=== PATIENT | male | born 1990 | race Hispanic/Latino ===

== ENCOUNTER 2025-04-22 16:52 | Inpatient (IN) | payer SELFPAY ==
[~2025-04-22] VITALS: Ht 172.7 cm; Wt 89.8 kg
--- NOTE | 2025-04-22 17:44 | HMCIMG ---
EXAM: CR Chest, 1 View. CLINICAL HISTORY: CHEST PAIN COMPARISON: None provided. FINDINGS: LUNGS: Left lung base opacity with loss of visualization of the left hemidiaphragm and left lateral costophrenic angle suggestive for an acute infectious process and probable left pleural effusion. PLEURAL SPACES: Likely left pleural effusion. Negative pneumothorax. MEDIASTINUM: The cardiomediastinal silhouette is within normal limits. BONES: No acute osseous abnormality. IMPRESSION: Left lower lung pneumonia and left pleural effusion. PA and lateral views of the chest or CT chest could further evaluate if felt to be clinically indicated. /[place]
[2025-04-22 17:47] LABS: IMMATURE GRANULOCYTE ABSOLUTE 0.10 K/uL (0-1); NUCLEATED RED BLOOD CELLS 0.0 % (0.0-0.19); PLATELET COUNT (AUTO) 578 K/uL (130-400); RED BLOOD CELL COUNT(AUTO) 5.02 MIL/uL (4.50-6.20); RED CELL DISTRIBUTION WIDTH 13.8 % (11.0-15.5); WHITE BLOOD COUNT (AUTO) 16.1 K/uL (4.8-10.8)
[2025-04-22 17:56] LABS: CREATININE 1.0 mg/dL (0.5-1.3); GLOMERULAR FILTR. RATE CALC 103.0 mL/min (>90); GLUCOSE,RANDOM 102.0 mg/dL (70-105); SODIUM SERUM 135.0 mmol/L (136-145); UREA NITROGEN, BLOOD 10.0 mg/dL (7-18)
[2025-04-22 18:59] LABS: INFLUENZA TYPE B Negative For Type B (NEGATIVE)
[2025-04-22 19:04] LABS: INFLUENZA TYPE A Positive For Type A (NEGATIVE)
[2025-04-22 19:43] LABS: SARS-CoV-2, RNA, NAAT NEGATIVE SARS CoV-2 (NEGATIVE)
[2025-04-22 19:45] LABS: APPEARANCE,URINE CLEAR (CLEAR); GLUCOSE, URINE (UA) NEGATIVE (NEGATIVE); LEUKOCYTE ESTERASE ,URINE NEGATIVE Leu/uL (NEGATIVE); NITRATE,URINE NEGATIVE (NEGATIVE); OCCULT BLOOD,URINE NEGATIVE (NEGATIVE)
[2025-04-22 19:47] LABS: ADD UA MICROSCOPIC YES
--- NOTE | 2025-04-22 19:47 | HP ---
History of Present Illness Reason for Visit: Pleuritic chest pain History of Present Illness Mr. Merchant is a 34-year-old male that was seen and examined today on 04/22/2025. Patient is a good historian of personal health Patient reports that he came to the emergency department with a chief complaint of pleuritic chest pain. Onset was two days ago. Location is left lower chest. Duration is on and off. Character is described as aching. There was no alleviating factors. Symptoms are aggravated with deep inspiration. Patient reports associated fever and cough. Today in the emergency department WBCs 16.1, left shift neutrophils 87%, urinalysis unremarkable, chemistry unremarkable, flu screen is positive for influenza a, chest x-ray shows left- sided pneumonia with left pleural effusion, lactic acid is unremarkable, procalcitonin is unremarkable additionally patient's temperature was 101.3, heart rate 134, together with leukocytosis and identified source of infection being pneumonia patient met clinical sepsis criteria. Patient reports that he was diagnosed clinically with pericarditis in the outpatient setting two weeks ago. Patient states he has not had any diagnostic radiographic studies to confirm this. Patient was started on colchicine 0.6 mg twice daily. Past Medical History ADDITIONAL PAST MEDICAL HISTORY: [Hyperlipidemia, pericarditis diagnosed two weeks ago without any confirmatory diagnostic radiographic imaging] SOCIAL HISTORY: [Negative for smoking, alcohol use, drug use. Patient lives with his , Soha Prescott. Patient is typically independent of his ADLs. Patient denies difficulty pain is bills.] SURGICAL HISTORY: [] Denies Review of Systems General: Fever; No Chills, No Night Sweats, No Fatigue, No Malaise, No Appetite, No Other HEENT: No Head Aches, No Visual Changes, No Eye Pain, No Ear Pain, No Dysphasia, No Sinus Congestion, No Post Nasal Drip, No Sore Throat, No Other Pulmonary: No Dyspnea; Cough; No Pleuritic Chest Pain; Other (Pleuritic chest pain) Cardiovascular: No: Chest Pain, Palpitations, Orthopnea, Paroxysmal Noc. Dyspnea, Edema, Lt Headedness, Other Gastrointestinal: No: Nausea, Vomiting, Abdominal Pain, Diarrhea, Constipation, Melena, Hematochezia, Other Genitourinary: No Dysuria, No Frequency, No Incontinence, No Hematuria, No Retention, No Other Musculoskeletal: No: other, neck pain, shoulder pain, arm pain, back pain, hand pain, leg pain, foot pain Skin: No Urticaria, No Rash, No Other Neurological: No: Weakness, Numbness, Incoordination, Change in speech, Confusion, Seizures, Other Allergies: Coded Allergies: amoxicillin (Unverified Allergy, Unknown, 04/22/25) Scheduled Colchicine (Colchicine), 1 TAB PO BID, (Reported) Loratadine/Pseudoephedrine (Claritin-D 12 Hour Tablet), 1 TAB PO BID, (Reported) Exam Vital Signs Vital Signs Date Time Temp Pulse Resp B/P (MAP) Pulse Ox O2 Delivery O2 Flow Rate FiO2 04/22/25 18:51 98.4 04/22/25 18:47 120 20 121/85 98 Room Air* 0 21 General Appearance: Alert, Oriented X3, Cooperative, mild distress HEENT: Atraumatic, PERRLA, EOMI, Mucous membr. moist/pink Respiratory: Other (Positive left lower lobe rhonchi) Cardiovascular: Normal S1, Normal S2, Other (Positive tachycardia) Abdominal: Normal bowel sounds, Soft, No tenderness Extremities: No edema Skin: No significant lesion Neuro: Normal gait, Normal speech, Strength at 5/5 X4 ext, Sensation intact, Cranial nerves 3-12 NL Psych/Mental Status: Mental status NL, Mood NL, Thoughts/Content NL Assessment/Plan ASSESSMENT: [ Sepsis, POA Pneumonia, POA Leukocytosis, POA Influenza A positive, POA Left pleural effusion, POA Hyperlipidemia Pericarditis diagnosed in the outpatient setting two weeks ago PLAN: [ Admit patient to medical floor as inpatient status. Fluid resuscitation with lactated Ringer's 30 mL/kg Empiric antibiotic therapy with Levaquin Reviewed patient's procalcitonin which was unremarkable Reviewed patient's lactic acid which was unremarkable Check blood culture, follow up with the results Check respiratory culture, follow up with the results Reviewed patient's urinalysis which was unremarkable DuoNebs every 6 hours Supportive treatment with a guaifenesin/dextromethorphan, Tylenol Tamiflu 75 mg by mouth twice daily Consider resuming home medications once they have been reconciled At time of admission home medications not been reconciled For now: Atorvastatin 40 mg by mouth once daily Cardiac MRI, follow up with the results Resume patient's home dose of colchicine 0.6 mg twice daily GI prophylaxis, famotidine DVT prophylaxis, Lovenox ADVANCED CARE PLANNING 1. Which of the following were discussed? Hospice Care - Yes Therapeutic options - yes Advance Directives - Yes - patient states he does not have any advance directives in place at this time, however his can make decisions for him if he becomes unable. Other discussions - patient wishes to remain a full code at this time 2. Discussed with who? Patient 3. Voluntary nature of this service was explained to the patient? Yes 4. Amount of time spent - ___16 minutes____ 5. Reviewed by Physician? (if this service was performed by NPP) Yes This document was generated in part using voice recognition software, occasional wrong word or sound alike substitutions may have occurred due to the inherent limitations of voice recognition software. Read the chart carefully and recognize using context, where the substitutions have occurred. Although every effort was made to edit the content, firestop/containment worker and typing errors may occur ATTESTATION BY PHYSICIAN I have seen and examined the patient. I reviewed the documentation, medical decision making, and treatment plan as noted by the mid-level provider above. I agree with the findings and plan of care. ] BREANA MERCHANT [facility] Apr 22, 2025 19:47
[2025-04-22 19:50] LABS: SQUAMOUS EPITHELIAL CELL,UR RARE /HPF (0-2)
[2025-04-22] MEDS: OSELTAMIVIR PHOSPHATE 75 MG CAP PO ONE (20:06)
[2025-04-22 20:09] VITALS: TEMP 98.4
--- NOTE | 2025-04-22 20:23 | ERN ---
General Chief Complaint: Chest Pain Stated Complaint: PNEUMONIA Time Seen by MD: 17:07 Time Seen by Midlevel: 17:07 Source: patient History of Present Illness Initial Comments 34-year-old male presents to the ER for evaluation of left-sided chest pain that has been persistent for the last couple of days. Allergies: Coded Allergies: amoxicillin (Unverified Allergy, Unknown, 04/22/25) Past Medical History Past Medical History: High Cholesterol Medical History Other: PERICARDITIS Past Surgical History: None ROS Dictation CONSTITUTIONAL: Negative except for HPI HEAD/FACE: Negative except for HPI EENT: Negative except for HPI RESPIRATORY: Negative except for HPI GASTROINTESTINAL/ABDOMINAL: Negative except for HPI GENITOURINARY: Negative except for HPI MUSCULOSKELETAL: Negative except for HPI INTEGUMENTARY: Negative except for HPI NEUROLOGICAL/PSYCH: Negative except for HPI HEMATOLOGIC/LYMPHATIC: Negative except for HPI All Systems Negative, Except as noted above. 13 point review of systems assessed and all negative except for above. Physical Exam Physical Exam Dictation Vital Signs reviewed General Appearance: Alert, oriented x 3, no acute distress, ill-appearing, pale Head and Face: non-traumatic. Eyes: PERRL, pink conjunctivas, eyelid no trauma, anterior chamber with arcus senilis. Ears: Pinnas intact and no signs of trauma or erythema ear canals clear and no discharge TM no erythema Nose: No discharge, no bleeding. Oropharynx: Mouth normal, tongue pink, pharynx clear,no erythema, tonsils no exudates, no abscesses noted, mucous membrane moist Neck: Supple, non-tender, no thyromegaly, no masses, no JVD, no bruits Breast:Deferred Chest:No tenderness, no crepitus, no paradoxical movement, no retractions Lungs:Clear, well-ventilated, symmetric, no rales, no wheezing, no rhonchi, no stridor, good breath sounds bilaterally Heart: Tachycardic regular rhythm, no murmur, no gallops Vascular: no peripheral edema, Abdomen: Soft, positive bowel sounds, nondistended, no guarding, nontender, no rebound, no masses no hepatomegaly, no splenomegaly, no Mccormack's sign, no hernias. Rectal: Deferred Genital: Deferred Neurological: Normal speech, motor function intact, sensory function intact Musculoskeletal: Neck nontender, full range of motion, back nontender, full range of motion, Extremities: nontender, full range of motion Skin: Color pink, dry, no turgor, no rash, no lacerations, no abrasions, no contusions. Lymphatic: Deferred MDM MDM: Differential diagnosis: Pneumonia, acute coronary syndrome, dehydration Rationale: Tests considered and ordered secondary to shared decision making include: Previous outside records reviewed: Old ER visits. Risk of complication and/or morbidity or mortality of patient management: None Medications-Per medication reconciliation Need for hospitalization: Patient does meet criteria for hospitalization. Need for emergency major/minor surgery: No There are no social concerns with this patient. Prescription drug management Prescriptions will include symptomatic care Patient's prior external medical records from other ER visits were reviewed by me as indicated. Prior testing and results from previous visits were reviewed. Prior tests were taken into account with medical decision making and resource utilization, independent historian/historians were used to obtain complete medical history. I independently interpreted the test that were performed, results were reviewed by me and considered findings on radiology if ordered. Medical management and examination interpretation discussions were had by me with other qualified healthcare professionals as indicated for the patient's care. ED Course Vital Signs Date Time Temp Pulse Resp B/P (MAP) Pulse Ox O2 Delivery O2 Flow Rate FiO2 04/22/25 16:53 101.3 134 20 133/79 99 Room Air [place] [id number] [address] IMAGING REPORT Signed PATIENT: RUKHSANA MERCHANT MR#: [id number] : 1990 SEX: M AGE: 34 LOCATION: [facility] ORDER 02 STATUS: REG ER REPORT#: [id number] SERVICE 01 REASON: CHEST PAIN ORDERING PHYSICIAN: LESLIE CARMICHAEL MD PROCEDURE: CXR1VW - CHEST 1VW EXAM: CR Chest, 1 View. CLINICAL HISTORY: CHEST PAIN COMPARISON: None provided. FINDINGS: LUNGS: Left lung base opacity with loss of visualization of the left hemidiaphragm and left lateral costophrenic angle suggestive for an acute infectious process and probable left pleural effusion. PLEURAL SPACES: Likely left pleural effusion. Negative pneumothorax. MEDIASTINUM: The cardiomediastinal silhouette is within normal limits. BONES: No acute osseous abnormality. IMPRESSION: Left lower lung pneumonia and left pleural effusion. PA and lateral views of the chest or CT chest could further evaluate if felt to be clinically indicated. /[place] DICTATED BY: SHE RUANO Jr., MD DATE: 04/22/251842 ELECTRONICALLY SIGNED BY: SHE RUANO Jr., MD DATE: 04/22/251842 DX & DISP Disposition: Inpatient Departure Impression: Primary Impression: Pneumonia involving left lung Additional Impressions: Pleural effusion, left, Influenza A, Leukocytosis Condition: Stable Referrals: SELF,REFERRAL (PCP) I have reviewed the case, and I agree with, Diagnosis and Plan I performed the substantive portion of the visit. I have reviewed and personally made and approve the management plan that is documented in the note by myself or the DESIRAE. I acknowledge for responsibility for the patient's management plan. KIM SOTELO PAC Apr 22, 2025 20:23
--- NOTE | 2025-04-22 21:46 | NUR ---
REPORT GIVEN TO JOAQUIM RN, PT GOING TO RM 330
[2025-04-22 22:00] VITALS: BP 138/77; PULSE 106; RESP 17; TEMP 97.9; O2SAT 93
[2025-04-22] MEDS ORDERED: LACTULOSE 20 GM/30 ML UDCUP PO PRN (22:00)
[2025-04-22] MEDS ORDERED: guaiFENesin-DM 200/20MG 10ML PO PRN (22:00)
--- NOTE | 2025-04-22 22:00 | NUR ---
NEW ADMISSION ADMITTED A 34 YR OLD MALE FROM ER WITH THE CHIEF COMPLAINT OF CHEST PAIN DESCRIBED TIGHTNESS TO THE LEFT CHEST RADIATING TO THE LEFT ARM SINCE TWO WEEKS AGO. SYMPTOMS ALSO INCLUDE SOME SHORTNESS OF BREATH AT INTERVALS WITH INTERMITTENT COUGHING WHICH IS NON PRODUCTIVE. WENT TO SEE HIS PCP SALLY FREEMAN FR[facility]ING CARPENTER AND [facility] WHERE HE WAS DIAGNOSED WITH POSSIBLE PERICARDITIS AND STARTED ON STEROIDS WHICH AFFORDED RELIEF UNTIL HE GOT DONE WITH THE REGIMEN.POSITIVE FOR INFLUENZA A AND WAS PLACED ON DROPLET ISOLATION AND WAS STARTED ON TAMIFLU, PER REGIMEN. STARTED ON SEPSIS PROTOCOL WITH THE WBC AT 16.1, LACTIC ACID AT 1.6, INITIATED THE FLUID RESUSCITATION WHICH WAS ORDERED WHEN THE PT GOT ON THE FLOOR, 2,829 OF LR BOLUS, 943 ML/HR, LEVAQUIN IV ANTIBIOTIC STARTED.ALSO TO BE STARTED ON DUONEBS TREATMENT PENDING SPUTUM COLLECTION FOR CULTURE. PT ALERT AND ORIENTED, AMBULATORY, BREATH SOUNDS CLEAR EXCEPT FOR SOME CONGESTION ON THE LEFT LOWER LOBE.WITH HISTORY OF [place], USES CPAP MASK AT HS.NEVER SMOKED, DRINKS ALCOHOL BET 2 WEEKS TO A MONTH.OS SAT 93% ON ROOM AIR. NOT IN ANY FORM OF DISCOMFORT AT THIS TIME. NO CHEST PAIN AT THIS TIME, AFEBRILE.
[2025-04-22] MEDS: SODIUM CHLORIDE 3% FOR INHALATION 4 ML/AMP VIAL.NEB IH ONE (23:25)
[2025-04-22 23:28] VITALS: PULSE 78; RESP 18; O2SAT 94
[2025-04-22 23:29] VITALS: PULSE 72; RESP 18
[2025-04-23] VITALS (10 sets, daily range): BP systolic 111–141; BP diastolic 73–89; PULSE 68–127; RESP 17–20; TEMP 98.4–100; O2SAT 91–96
[2025-04-23 04:38] LABS: IMMATURE GRANULOCYTE ABSOLUTE 0.07 K/uL (0-1); NUCLEATED RED BLOOD CELLS 0.0 % (0.0-0.19); PLATELET COUNT (AUTO) 381 K/uL (130-400); RED BLOOD CELL COUNT(AUTO) 3.91 MIL/uL (4.50-6.20); RED CELL DISTRIBUTION WIDTH 13.6 % (11.0-15.5); WHITE BLOOD COUNT (AUTO) 10.1 K/uL (4.8-10.8)
[2025-04-23 04:54] LABS: CREATININE 0.8 mg/dL (0.5-1.3); GLOMERULAR FILTR. RATE CALC 121.0 mL/min (>90); GLUCOSE,RANDOM 96.0 mg/dL (70-105); PHOSPHORUS 3.5 mg/dL (2.5-4.9); SODIUM SERUM 140.0 mmol/L (136-145); UREA NITROGEN, BLOOD 10.0 mg/dL (7-18)
[2025-04-23] MEDS: SODIUM CHLORIDE 3% FOR INHALATION 4 ML/AMP VIAL.NEB IH ONE ×2 (06:49→11:32)
--- NOTE | 2025-04-23 07:37 | EKG ---
[facility] Test Date: 2025-04-22 Test Time: 16:36:11 Pat Name: RUKHSANA MERCHANT Department: [facility] Room: 330 1 Gender: M Rod Filler: [id number] : 1990 Requested By: LESLIE CARMICHAEL Order Number: [id number] Reading MD: Gunner Prescott Measurements Intervals [place] Rate: 125 P: 34 HI: 140 QRS: 33 QRSD: 89 T: 37 QT: 292 QTc: 421 Interpretive Statements Sinus tachycardia Probable left atrial enlargement No previous ECG available for comparison Electronically Signed On 04-23-2025 08:51:31 OLIVING MACHINE OPERATOR by Gunner Prescott Please click the below link to view image of tracing.
[2025-04-23] MEDS: LORATAdine/pseudophEPHEDrine 5/120 MG 1 EACH TAB.SR.12H PO SCH (07:50)
[2025-04-23] MEDS: OSELTAMIVIR PHOSPHATE 75 MG CAP PO SCH (07:50)
[2025-04-23] MEDS: FAMOTIDINE 20MG TAB PO SCH (07:50)
[2025-04-23] MEDS: ENOXAPARIN SODIUM 40 MG/0.4 ML SYRINGE SQ SCH (07:50)
--- NOTE | 2025-04-23 10:02 | NUR ---
THE NURSE WILL BE FOLLOWING UP WITH THE ATTENDING FOR CLARIFICATION ON THE MRI ORDER. IF CARDIAC MRI IS WHAT IS DESIRED, WE ARE INCAPABLE OF PROVIDING THIS EXAM. THIS MRI UNIT LACKS THE SOFTWARE AND EQUIPMENT FOR CARDIAC MRI IMAGING.
--- NOTE | 2025-04-23 10:27 | NUR ---
DCP:HOME Pt currently lives at home with his . Pt states that he only has a CPAP machine at home, denies any home health or provider services. Pt states that he is able to complete ADLs independently. PCP is Marichuy Wright and uses [facility] for any RX needs. At DC pt will want to go home and family can assist with transportation.
--- NOTE | 2025-04-23 10:38 | PN ---
[facility] PROGRESS NOTE Date of Service: Apr 23, 2025 Time of Service: 10:32 Dr. Cee SUBJECTIVE: [ 04/22/25 Patient reports that he came to the emergency department with a chief complaint of pleuritic chest pain. Onset was two days ago. Location is left lower chest. Duration is on and off. Character is described as aching. There was no alleviating factors. Symptoms are aggravated with deep inspiration. Patient reports associated fever and cough. Today in the emergency department WBCs 16.1, left shift neutrophils 87%, urinalysis unremarkable, chemistry unremarkable, flu screen is positive for influenza a, chest x-ray shows left-sided pneumonia with left pleural effusion, lactic acid is unremarkable, procalcitonin is unremarkable additionally patient's temperature was 101.3, heart rate 134, together with leukocytosis and identified source of infection being pneumonia patient met clinical sepsis criteria. Patient reports that he was diagnosed clinically with pericarditis in the outpatient setting two weeks ago. Patient states he has not had any diagnostic radiographic studies to confirm this. Patient was started on co lchicine 0.6 mg twice daily. 04/23/25 patient was seen by nurse practitioner and physician during rounding in room 330. WBC is trending down today is 10.1.. Patient continues to be on Levaquin and Tamiflu for influenza A positive. Patient is pending sputum culture. Chest x-ray showed pneumonia. CT scan of chest was ordered to evaluate further for pneumonia. During evaluation patient stated to the nurse practitioner that he was just recently diagnosed with possible pericarditis and was started on colchicine? 2D echo was ordered. Blood culture pending. Agriculture Teacher was consulted for possible pericarditis. We will also consult ID for pneumonia and possible pericarditis as well. We will continue to monitor patient in the meantime. A.m. labs. ] REVIEW OF SYSTEMS CONSTITUTIONAL: Denies fevers, chills, or night sweats. No unintentional weight loss reported. NEUROLOGICAL: Denies headache, amaurosis fugax, sensory deficit, v ertigo/spinning sensation, gait abnormalities, or tremors. Complains of generalized body weakness ENT: No hearing loss, otalgia, otorrhea, rhinitis, rhinorrhea, hoarseness, or sore throat. CARDIOVASCULAR: Denies any exertional angina, dyspnea on exertion, orthopnea, paroxysmal nocturnal dyspnea, palpitations, life-threatening arrhythmias, claudication. PULMONARY: Denies any shortness of breath, cough, phlegm/sputum, hemoptysis, pleuritic chest pain. SLEEP: Denies morning headaches, daytime somnolence or napping. Denies difficulty falling asleep, staying asleep, waking from sleep. Denies knowledge of snoring. GASTROINTESTINAL: Denies any type of dysphagia to either liquids or solids. Denies nausea, vomiting, pyrosis, early satiety, abdominal pain, diarrhea, constipation, or changes in stool consistency or caliber. Denies coffee-ground emesis, hematemesis, hematochezia, or melanotic stools. GENITOURINARY: Denies frequency, urgency, nocturia, hematuria or incontinence (Storage/Irritative symptoms.) Low urinary stream, straining to void, urinary intermittency or hesitancy, splitting of the voiding stream, terminal dribbling. ENDOCRINOLOGIC: Denies polyuria, polydipsia, polyphagia or heat/cold intolerances. HEMATOLOGIC: Denies thrombophilia/previous clots, or coagulopathy/bleeding diso rders. ONCOLOGIC: Denies personal history of malignancy. DERMATOLOGIC: Denies rashes or pruritus. PSYCHIATRIC: Denies any suicidal or homicidal ideation. Denies hallucinations. PHYSICAL EXAM GENERAL APPEARANCE: The patient is awake, alert, and oriented, in no acute cardiopulmonary distress. NEUROLOGICAL: Cranial nerves II-XII grossly intact. Motor is 5/5 in bilateral upper and lower extremities proximal to distal. No sensory deficits. HEENT: Face is symmetric. Pupils are equal and reactive. Extraocular movements are intact. NECK: Supple. No JVD. No thyromegaly. No submental, submandibular, pre- /postauricular, occipital or supraclavicular lymphadenopathy. CHEST: Normal chest expansion. No Telemetry. LUNGS: Absence of any rales, rhonchi or any wheezing. CARDIOVASCULAR: Regular. S1 and S2 normal. No appreciable rubs, murmurs or gallops. ABDOMEN: Soft, nontender, and nondistended. There is no rebound, voluntary guarding, or rigidity. : Deferred. No Michael. EXTREMITIES: Non-edematous and not cyanotic. No clubbing. Good capillary r efill. SKIN: No skin breakdown. Vital Signs (last 8hr) Date Time Temp Pulse Resp B/P (MAP) Pulse Ox O2 Delivery O2 Flow Rate FiO2 04/23/25 08:00 99.0 94 20 141/89 95 Room Air 04/23/25 06:51 78 18 04/23/25 06:51 80 18 N/A Room Air 21 04/23/25 03:53 98.4 68 17 127/78 95 Room Air 21 LABS: Laboratory: Test 04/23/25 04:22 04/22/25 19:22 04/22/25 18:51 04/22/25 18:34 Range/Units White Blood Count 10.1 # 4.8-10.8 K/uL Red Blood Count 3.91 #L 4.50-6.20 MIL/uL Hemoglobin 11.1 #L 14.0-18.0 g/dL Hematocrit 35.3 #L 42-54 % Mean Corpuscular Volume 90.3 79-99 fL Mean Corpuscular Hemoglobin 28.4 27.0-33.0 pg Mean Corpuscular Hemoglobin Concent 31.4 L 32.0-36.0 g/dL Red Cell Distribution Width 13.6 11.0-15.5 % Platelet Count 381 # 130-400 K/uL Mean Platelet Volume 8.0 7.5-10.5 fL Immature Granulocyte % (Auto) 0.7 0-1 % Neutrophils (%) (Auto) 66.1 40.0-77.0 % Lymphocytes (%) (Auto) 20.3 L 21.0-51.0 % Monocytes (%) (Auto) 11.1 3.0-13.0 % Eosinophils (%) (Auto) 1.6 0.0-8.0 % Basophils (%) (Auto) 0.2 0.0-5.0 % Neutrophils # (Auto) 6.7 1.8-7.7 K/uL Lymphocytes # (Auto) 2.0 1.0-4.8 K/uL Monocytes # (Auto) 1.1 H 0.1-1.0 K/uL Eosinophils # (Auto) 0.16 0.00-0.70 K/uL Basophils # (Auto) 0.02 0.00-0.20 K/uL Absolute Immature Granulocyte (auto 0.07 0-1 K/uL Nucleated Red Blood Cells 0.0 0.0-0.19 % Sodium Level 140 136-145 mmol/L Potassium Level 4.1 3.5-5.1 mmol/L Chloride Level 104 101-111 mmol/L Carbon Dioxide Level 30 21-32 mmol/L Blood Urea Nitrogen 10 7-18 mg/dL Creatinine 0.8 0.5-1.3 mg/dL Glomerular Filtration Rate Calc 121 >90 mL/min Random Glucose 96 70-105 mg/dL Total Calcium 8.2 L 8.5-10.1 mg/dL Phosphorus Level 3.5 2.5-4.9 mg/dL Magnesium Level 2.00 1.80-2.40 mg/dL Urine Color YELLOW YELLOW Urine Appearance CLEAR CLEAR Urine pH 6.0 5.0-8.0 Urine Specific [place] 1.033 H 1.001-1.031 Urine Protein 50 H NEGATIVE mg/dL Urine Glucose (UA) NEGATIVE NEGATIVE mg/dL Urine Ketones 150 H NEGATIVE mg/dL Urine Occult Blood NEGATIVE NEGATIVE Urine Nitrate NEGATIVE NEGATIVE Urine Bilirubin 0.5 H NEGATIVE mg/dL Urine Urobilinogen 6 H 0.2-1.0 mg/dL Urine Leukocyte Esterase NEGATIVE NEGATIVE Ester/uL Urine RBC 2-5 H 0-1 /HPF Urine WBC 2-5 H 0-1 /HPF Urine Squamous Epithelial Cells RARE 0-2 /HPF Urine Bacteria RARE None Seen /HPF Lactic Acid Level 1.6 0.8-2.5 mmol/L Influenza Type A Antigen Positive For Type A *A NEGATIVE Influenza Type B Antigen Negative For Type B NEGATIVE SARS-CoV-2, RNA, NAAT NEGATIVE SARS CoV-2 NEGATIVE Test 04/22/25 17:36 04/22/25 17:33 Range/Units Procalcitonin 0.05 0.05-0.5 ng/mL White Cell Morphology Comment See comments Troponin I High Sensitivity 5 4-75 ng/L Current Medications Medications (Trade) Dose Ordered Sig/Philip Route PRN Reason Start Time Stop Time Status Last Admin Dose Admin Acetaminophen (TYLenol 325MG TAB) 650 mg Q6H PRN PO TEMPERATURE GREATER THAN 101.5 04/22/25 22:00 05/22/25 21:59 04/23/25 01:43 650 MG Albuterol (DUOneb) 1 UDVIAL [id number] IH 04/23/25 00:00 05/23/25 00:00 04/23/25 06:48 1 UDVIAL Atorvastatin Calcium (LIPItor 40MG) 40 mg HS PO 04/23/25 21:00 05/23/25 20:59 Colchicine (COLCHicine 0.6mg TAB) 0.6 mg BID PO 04/23/25 09:00 05/23/25 08:59 04/23/25 07:50 0.6 MG Colchicine (COLCHicine 0.6mg TAB) 0.6 mg BID PO 04/23/25 09:00 04/23/25 06:22 DC Enoxaparin Sodium (Lovenox) 40 mg DAILY SQ 04/23/25 09:00 05/23/25 08:59 04/23/25 07:50 40 MG Famotidine (Pepcid 20mg Tab) 20 mg DAILY PO 04/23/25 09:00 05/23/25 08:59 04/23/25 07:50 20 MG Guaifenesin/ Dextromethorphan (RobiTUSSin DM 200/20MG 10ML) 10 ml Q4H PRN PO COUGH 04/22/25 22:00 05/22/25 21:59 Hydralazine HCl (APRESOLine 20MG INJ) 10 mg Q6H PRN IV For:SBP above 160;DBP above 90 04/22/25 22:00 05/22/25 21:59 Lactulose (Constulose 20gm/ 30ml Udcup) 20 gm BID PRN PO CONSTIPATION 04/22/25 22:00 05/22/25 21:59 Levofloxacin/ Dextrose 150 ml @ 100 mls/hr Q24H IV 04/22/25 22:00 05/02/25 21:59 04/22/25 22:32 100 MLS/HR Loratadine/ Pseudoephedrine Sulfate (CLARitin-D 12 HOUR TABLET) 1 each BID PO 04/23/25 09:00 05/23/25 08:59 04/23/25 07:50 1 EACH Morphine Sulfate (morPHINE 4MG SYG) 4 mg Q4H PRN IVP SEVERE PAIN (7-10) 04/22/25 22:00 04/29/25 21:59 04/23/25 07:51 4 MG Ondansetron HCl (zoFRAN 4MG INJ) 4 mg Q6H PRN IV NAUSEA/VOMITING 04/22/25 22:00 05/22/25 21:59 Oseltamivir Phosphate (Tamiflu) 75 mg BID PO 04/23/25 09:00 04/28/25 08:59 04/23/25 07:50 75 MG DIAGNOSTICS / RADIOLOGY: [ ] ASSESSMENT: [ Acute sepsis POA Community-acquired pneumonia POA Obstructive sleep apnea newly diagnosed POA Possible pericarditis diagnosed few days ago at the PCP clinic POA Influenza A positive POA Leukocytosis POA Uncontrolled hypertension POA Multifactorial anemia POA Electrolyte imbalance hyponatremia Na 135 POA Hyperlipidemia POA] PLAN: [ WBC is trending down today is 10.1.. Patient continues to be on Levaquin and Tamiflu for influenza A positive. Patient is pending sputum culture. Chest x-ray showed pneumonia. CT scan of chest was ordered to evaluate further for pneumonia. During evaluation patient stated to the nurse practitioner that he was just recently diagnosed with possible pericarditis and was started on colchicine? 2D echo was ordered. Blood culture pending. Agriculture Teacher was consulted for possible pericarditis. We will also consult ID for pneumonia and possible pericarditis as well. We will continue to monitor patient in the meantime. A.m. labs. 2D echo pending CT chest pending PRN medications Sputum culture pending Blood culture pending A.m. labs pending ID consulted Agriculture Teacher consulted ] ATTESTATION BY PHYSICIAN I have seen and examined the patient. I reviewed the documentation, medical decision making, and treatment plan as noted by the mid-level provider above. I agree with the findings and plan of care. RUKHSANA CEE MD, [facility] Apr 23, 2025 10:38
--- NOTE | 2025-04-23 12:52 | HMCSR ---
APPROVED REPORT EXAM: Two-dimensional and M-mode echocardiogram with Doppler and color Doppler. INDICATION ICD: Pericarditis 2D Dimensions RVDd 3.1 cm LVEF(%) 70.3 (>50%) LVED Vol(simp.) 134.0 mL IVSd 1.0 (0.7-1.1cm) FS(%) 39 % LVES Vol(simp.) 78.0 mL LVDd 4.1 (3.8-5.6cm) LA (2D) 3.2 (1.6-4.0cm) LVEF(%, simp.) 42 % PWd 1.1 (0.7-1.1cm) Ao Root(2D) 3.1 (2.0-3.7cm) LA ESV INDEX (BP) 15.97 mL/m2 LVDs 2.5 (2.5-4.0cm) LVOT diam 2.2 (1.8-2.4cm) IVC diam 1.8 cm Deformation Strain Apical 4 -13.2 % Apical 2 -13.3 % Apical 3 -15.3 % Global Strain -13.9 % M-Mode Dimensions EPSS 0.5 cm LA (MM) 3.4 (1.6-4.0cm) Ao Root(MM) 3.5 (2.0-3.7cm) Aortic Valve AoV Vmax 1.3 m/s Ao Peak GR 6.3 mmHg LVOT Vmax 1.1 m/s AoV VTI 0.2 m Ao Mean GR 4.0 mmHg LVOT VTI 0.14 m TREVOR (VMAX) 3.27 cm2 TREVOR (VTI) 3.0 cm2 Mitral Valve MV E Vmax 70.4 cm/s DECEL Time 126 ms MV A Vmax 53.5 cm/s P 1/2 T 33 ms E/A ratio 1.3 MVA (PHT) 6.7 cm2 TDI E/E' Medial 6.0 E/E' Lateral 6.3 Medial E' Peak V 11.73 cm/s Lateral E' Peak V 11.13 cm/s Left Ventricle The left ventricle is normal size. Mild global hypokinesis There is normal left ventricular wall thickness. LVEF is 45%. The left ventricular diastolic function is normal. Right Ventricle The right ventricle is normal size. Right ventricular systolic function is severely reduced. Atria The left atrium size is normal. The right atrium size is normal. Aortic Valve The aortic valve is normal in structure. No aortic regurgitation is present. There is no aortic valvular stenosis. Mitral Valve The mitral valve is normal in structure. There is no mitral valve regurgitation noted. There is no mitral valve stenosis. Tricuspid Valve The tricuspid valve is normal in structure. There is no tricuspid valve regurgitation noted. Pulmonic Valve The pulmonary valve is normal in structure. There is no pulmonic valvular regurgitation. Great Vessels The aortic root is normal in size. The IVC is normal in size and collapses >50% with inspiration. Pericardium Trivial pericardial effusion. Conclusion LVEF is 45%. Mild global hypokinesis Right ventricular systolic function is severely reduced.
--- NOTE | 2025-04-23 13:34 | PN ---
INFECTIOUS DISEASE PROGRESS NOTE Date of Service: Apr 23, 2025 SUBJECTIVE: This is a 34-year-old male patient with current medical history of hyperlipidemia, sleep apnea, pre diabetes mellitus and anxiety who presented to the hospital with chief complaint of chest tightness spreading to the left arm associated with cough and night sweats. No recent travel and reported no one else is sick at home. Stated that he went to see his PCP regarding this issue and was started on steroids and colchicine and since there was no improvement he was referred to a crystallizer operator at the [facility] for possible pericarditis. An EKG was done at the time with normal findings and was scheduled for a 2D echo to be done on the of this month. Patient however continued with the pleuritic pain and decided to come to the hospital for evaluation. On admission to the hospital a chest x-ray was obtained which showed left lower lung pneumonia and left pleural effusion. Influenza swab was obtained which was positive for influenza type A. Pending a CT chest and a 2D echo at the time of my examination today. He is expectorating very small amount of clear white phlegm but not enough for a sputum culture collection and being induced by respiratory therapy. Patient has been started on levofloxacin and Tamiflu. We will continue current antibiotics and continue to follow patient's care. REVIEW OF SYSTEMS CONSTITUTIONAL: Night sweats. HEAD/FACE: No signs of trauma. EENT: Denies eye pain, blurred vision, double vision, or light sensitivity. RESPIRATORY: Cough. CARDIOVASCULAR: Chest pressure radiating to the left arm. GASTROINTESTINAL/ABDOMINAL: Denies abdominal pain, constipation, diarrhea, nausea or vomiting GENITOURINARY: Denies dysuria or hematuria. MUSCULOSKELETAL: Denies joint pain, tenderness, or trauma. INTEGUMENTARY: Denies rash or itchiness NEUROLOGICAL/PSYCH: Denies anxiety, depression, heat or cold intolerance. PHYSICAL EXAM EYES: Anicteric. Pupils equal and reactive. HENT: No oral thrush seen, moist Oral mucosa NECK: Supple, no JVD or thyromegaly. LUNGS: Good air entry. Productive cough. CARDIOVASCULAR: S1, S2 regular. No murmur heard. ABDOMEN: Soft, non tender, bowel sounds present, no organomegaly CENTRAL NERVOUS SYSTEM: Awake, alert, oriented x 3. SKIN: No rashes, no swelling. LYMPHATICS: No peripheral lymphadenopathy MUSCULOSKELETAL: No joint swelling, erythema or tenderness. EXTREMITIES: No cyanosis or clubbing. BACK: No deformity, no pressure ulcer. GENITOURINARY: No dysuria or hematuria. Vital Sign (Last 12 Hours) 04/23/25 04/23/25 04/23/25 04/23/25 03:53 06:51 06:51 08:00 Temp 98.4 99.0 Pulse 68 80 78 94 Resp 17 18 18 20 B/P (MAP) 127/78 141/89 Pulse Ox 95 95 O2 Delivery Room Air N/A Room Air Room Air FiO2 21 21 04/23/25 10:50 Pulse Ox 95 O2 Delivery Room Air* O2 Flow Rate 0 FiO2 21 Intake & Output (last 24hrs) 04/22/25 04/22/25 04/23/25 15:00 23:00 07:00 Intake Total 1150.0 ml 1829.0 ml Output Total 950 ml Balance 1150.0 ml 879.0 ml LABS: Laboratory: Test 04/23/25 04:22 04/22/25 19:22 04/22/25 18:51 04/22/25 18:34 Range/Units White Blood Count 10.1 # 4.8-10.8 K/uL Red Blood Count 3.91 #L 4.50-6.20 MIL/uL Hemoglobin 11.1 #L 14.0-18.0 g/dL Hematocrit 35.3 #L 42-54 % Mean Corpuscular Volume 90.3 79-99 fL Mean Corpuscular Hemoglobin 28.4 27.0-33.0 pg Mean Corpuscular Hemoglobin Concent 31.4 L 32.0-36.0 g/dL Red Cell Distribution Width 13.6 11.0-15.5 % Platelet Count 381 # 130-400 K/uL Mean Platelet Volume 8.0 7.5-10.5 fL Immature Granulocyte % (Auto) 0.7 0-1 % Neutrophils (%) (Auto) 66.1 40.0-77.0 % Lymphocytes (%) (Auto) 20.3 L 21.0-51.0 % Monocytes (%) (Auto) 11.1 3.0-13.0 % Eosinophils (%) (Auto) 1.6 0.0-8.0 % Basophils (%) (Auto) 0.2 0.0-5.0 % Neutrophils # (Auto) 6.7 1.8-7.7 K/uL Lymphocytes # (Auto) 2.0 1.0-4.8 K/uL Monocytes # (Auto) 1.1 H 0.1-1.0 K/uL Eosinophils # (Auto) 0.16 0.00-0.70 K/uL Basophils # (Auto) 0.02 0.00-0.20 K/uL Absolute Immature Granulocyte (auto 0.07 0-1 K/uL Nucleated Red Blood Cells 0.0 0.0-0.19 % Sodium Level 140 136-145 mmol/L Potassium Level 4.1 3.5-5.1 mmol/L Chloride Level 104 101-111 mmol/L Carbon Dioxide Level 30 21-32 mmol/L Blood Urea Nitrogen 10 7-18 mg/dL Creatinine 0.8 0.5-1.3 mg/dL Glomerular Filtration Rate Calc 121 >90 mL/min Random Glucose 96 70-105 mg/dL Total Calcium 8.2 L 8.5-10.1 mg/dL Phosphorus Level 3.5 2.5-4.9 mg/dL Magnesium Level 2.00 1.80-2.40 mg/dL Urine Color YELLOW YELLOW Urine Appearance CLEAR CLEAR Urine pH 6.0 5.0-8.0 Urine Specific [place] 1.033 H 1.001-1.031 Urine Protein 50 H NEGATIVE mg/dL Urine Glucose (UA) NEGATIVE NEGATIVE mg/dL Urine Ketones 150 H NEGATIVE mg/dL Urine Occult Blood NEGATIVE NEGATIVE Urine Nitrate NEGATIVE NEGATIVE Urine Bilirubin 0.5 H NEGATIVE mg/dL Urine Urobilinogen 6 H 0.2-1.0 mg/dL Urine Leukocyte Esterase NEGATIVE NEGATIVE Ester/uL Urine RBC 2-5 H 0-1 /HPF Urine WBC 2-5 H 0-1 /HPF Urine Squamous Epithelial Cells RARE 0-2 /HPF Urine Bacteria RARE None Seen /HPF Lactic Acid Level 1.6 0.8-2.5 mmol/L Influenza Type A Antigen Positive For Type A *A NEGATIVE Influenza Type B Antigen Negative For Type B NEGATIVE SARS-CoV-2, RNA, NAAT NEGATIVE SARS CoV-2 NEGATIVE Test 04/22/25 17:36 04/22/25 17:33 Range/Units Procalcitonin 0.05 0.05-0.5 ng/mL White Cell Morphology Comment See comments Troponin I High Sensitivity 5 4-75 ng/L DIAGNOSTICS / RADIOLOGY: PATIENT: RUKHSANA MERCHANT MR#: [id number] : 1990 SEX: M AGE: 34 LOCATION: [facility] ORDER 02 STATUS: REG ER REPORT#: [id number] SERVICE 01 REASON: CHEST PAIN ORDERING PHYSICIAN: LESLIE CARMICHAEL MD PROCEDURE: CXR1VW - CHEST 1VW EXAM: CR Chest, 1 View. CLINICAL HISTORY: CHEST PAIN COMPARISON: None provided. FINDINGS: LUNGS: Left lung base opacity with loss of visualization of the left hemidiaphragm and left lateral costophrenic angle suggestive for an acute infectious process and probable left pleural effusion. PLEURAL SPACES: Likely left pleural effusion. Negative pneumothorax. MEDIASTINUM: The cardiomediastinal silhouette is within normal limits. BONES: No acute osseous abnormality. IMPRESSION: Left lower lung pneumonia and left pleural effusion. PA and lateral views of the chest or CT chest could further evaluate if felt to be clinically indicated. /[place] DICTATED BY: SHE RUANO Jr., MD DATE: 04/22/251842 ELECTRONICALLY SIGNED BY: SHE RUANO Jr., MD DATE: 04/22/251842 ASSESSMENT: Left lower lobe pneumonia. Influenza viral infection type A. Leukocytosis, improving. Left pleural effusion. Prediabetes mellitus. Anxiety. PLAN: Continue levofloxacin. Continue Tamiflu. Oxygen support if needed. Obtain a HIV 1-[address] chest and a 2D echo interpretation. We will follow up on the cultures results. This case was reviewed and discussed with my supervising physician Dr. Kay and the above assessment and plan was formulated and agreed upon. ATTESTATION BY PHYSICIAN I have seen and examined the patient. I reviewed the documentation, medical decision making, and treatment plan as noted by the mid-level provider above. I agree with the findings and plan of care. FAN KAY MD, [facility] Apr 23, 2025 13:34
[2025-04-23 14:54] LABS: HIV 1&2 ANTIBODY Non-Reactive (Negative)
[2025-04-24] VITALS (10 sets, daily range): BP systolic 123–136; BP diastolic 72–90; PULSE 102–128; RESP 20; TEMP 97.3–98.3; O2SAT 93–97
[2025-04-24 05:05] LABS: IMMATURE GRANULOCYTE ABSOLUTE 0.05 K/uL (0-1); NUCLEATED RED BLOOD CELLS 0.0 % (0.0-0.19); PLATELET COUNT (AUTO) 420 K/uL (130-400); RED BLOOD CELL COUNT(AUTO) 4.00 MIL/uL (4.50-6.20); RED CELL DISTRIBUTION WIDTH 13.6 % (11.0-15.5); WHITE BLOOD COUNT (AUTO) 8.8 K/uL (4.8-10.8)
[2025-04-24 05:30] LABS: ASPARTATE AMINOTRANSFERASE 20.0 U/L (10-37); CREATININE 0.8 mg/dL (0.5-1.3); GLOMERULAR FILTR. RATE CALC 121.0 mL/min (>90); GLUCOSE,RANDOM 88.0 mg/dL (70-105); SODIUM SERUM 140.0 mmol/L (136-145); TOTAL PROTEIN, SERUM 7.2 g/dL (6.0-8.3); UREA NITROGEN, BLOOD 5.0 mg/dL (7-18)
--- NOTE | 2025-04-24 09:01 | HMCIMG ---
EXAM: CT Chest Without IV contrast. CLINICAL HISTORY: pna TECHNIQUE: Axial computed tomography images of the chest without intravenous contrast. COMPARISON: CR - CHEST 1VW - 04/22/25 FINDINGS: LUNGS: No pulmonary mass. The lungs appear essentially clear. PLEURAL SPACES: No pneumothorax evident. Moderate fluid in the right pleural cavity with underlying segmental collapse. Trace fluid in the left pleural cavity with underlying subsegmental collapse. HEART: No cardiomegaly. Mild pericardial effusion. LYMPH NODES: No lymphadenopathy is evident. UPPER ABDOMEN: Fatty liver. The rest of the upper abdominal solid organs are unremarkable. BONES: No acute osseous abnormality. IMPRESSION: 1. Moderate right pleural effusion with segmental atelectasis. Trace left pleural effusion with subsegmental atelectasis. Pulmonary infiltrates. 2. Mild pericardial effusion. 3. Fatty liver. /[place]
--- NOTE | 2025-04-24 14:15 | PN ---
[facility] PROGRESS NOTE Date of Service: Apr 24, 2025 Time of Service: 14:13 SUBJECTIVE: [Patient evaluated in his room this morning. He denies any chest pain, shortness of breath, palpitations, or new symptoms. He expressed concern regarding his prior diagnosis of pericarditis. He was informed that a 2D echocardiogram was performed yesterday, and the results were reviewed with him. Objective: General: Awake, alert, oriented, in no acute distress. Cardiac: No chest pain reported. Vital signs stable overnight. Review of 2D Echo (04/23/25): LVEF 45%, mild global hypokinesis Right ventricular systolic function severely reduced Trivial pericardial effusion No significant pericarditis identified Cardiology: Consulted. Pericarditis ruled out. No acute cardiac intervention recommended. ] REVIEW OF SYSTEMS CONSTITUTIONAL: Denies fevers, chills, or night sweats. No unintentional weight loss reported. NEUROLOGICAL: Denies headache, amaurosis fugax, sensory deficit, vertigo/spinning sensation, gait abnormalities, or tremors. Complains of generalized body weakness ENT: No hearing loss, otalgia, otorrhea, rhinitis, rhinorrhea, hoarseness, or sore throat. CARDIOVASCULAR: Denies any exertional angina, dyspnea on exertion, orthopnea, paroxysmal nocturnal dyspnea, palpitations, life-threatening arrhythmias, claudication. PULMONARY: Denies any shortness of breath, cough, phlegm/sputum, hemoptysis, pleuritic chest pain. SLEEP: Denies morning headaches, daytime somnolence or napping. Denies difficulty falling asleep, staying asleep, waking from sleep. Denies knowledge of snoring. GASTROINTESTINAL: Denies any type of dysphagia to either liquids or solids. Denies nausea, vomiting, pyrosis, early satiety, abdominal pain, diarrhea, constipation, or changes in stool consistency or caliber. Denies coffee-ground emesis, hematemesis, hematochezia, or melanotic stools. GENITOURINARY: Denies frequency, urgency, nocturia, hematuria or incontinence (Storage/Irritative symptoms.) Low urinary stream, straining to void, urinary intermittency or hesitancy, splitting of the voiding stream, terminal dribbling. ENDOCRINOLOGIC: Denies polyuria, polydipsia, polyphagia or heat/cold intolerances. HEMATOLOGIC: Denies thrombophilia/previous clots, or coagulopathy/bleeding disorders. ONCOLOGIC: Denies personal history of malignancy. DERMATOLOGIC: Denies rashes or pruritus. PSYCHIATRIC: Denies any suicidal or homicidal ideation. Denies hallucinations. PHYSICAL EXAM GENERAL APPEARANCE: The patient is awake, alert, and oriented, in no acute cardiopulmonary distress. NEUROLOGICAL: Cranial nerves II-XII grossly intact. Motor is 5/5 in bilateral upper and lower extremities proximal to distal. No sensory deficits. HEENT: Face is symmetric. Pupils are equal and reactive. Extraocular movements are intact. NECK: Supple. No JVD. No thyromegaly. No submental, submandibular, pre- /postauricular, occipital or supraclavicular lymphadenopathy. CHEST: Normal chest expansion. No Telemetry. LUNGS: Absence of any rales, rhonchi or any wheezing. CARDIOVASCULAR: Regular. S1 and S2 normal. No appreciable rubs, murmurs or gallops. ABDOMEN: Soft, nontender, and nondistended. There is no rebound, voluntary guarding, or rigidity. : Deferred. No Michael. EXTREMITIES: Non-edematous and not cyanotic. No clubbing. Good capillary refill. SKIN: No skin breakdown. Vital Signs (last 8hr) Date Time Temp Pulse Resp B/P (MAP) Pulse Ox O2 Delivery O2 Flow Rate FiO2 04/24/25 12:00 97.3 102 20 132/82 95 Room Air 04/24/25 11:45 112 20 04/24/25 08:00 97.3 104 20 130/78 93 Room Air 04/24/25 08:00 93 Room Air* 0 21 04/24/25 07:24 104 20 N/A Room Air 21 04/24/25 07:22 104 20 LABS: Laboratory: Test 04/24/25 04:50 04/23/25 17:44 04/23/25 13:42 04/23/25 04:22 Range/Units White Blood Count 8.8 4.8-10.8 K/uL Red Blood Count 4.00 L 4.50-6.20 MIL/uL Hemoglobin 11.6 L 14.0-18.0 g/dL Hematocrit 35.4 L 42-54 % Mean Corpuscular Volume 88.5 79-99 fL Mean Corpuscular Hemoglobin 29.0 27.0-33.0 pg Mean Corpuscular Hemoglobin Concent 32.8 32.0-36.0 g/dL Red Cell Distribution Width 13.6 11.0-15.5 % Platelet Count 420 H 130-400 K/uL Mean Platelet Volume 8.0 7.5-10.5 fL Immature Granulocyte % (Auto) 0.6 0-1 % Neutrophils (%) (Auto) 62.5 40.0-77.0 % Lymphocytes (%) (Auto) 23.7 21.0-51.0 % Monocytes (%) (Auto) 11.0 3.0-13.0 % Eosinophils (%) (Auto) 1.7 0.0-8.0 % Basophils (%) (Auto) 0.5 0.0-5.0 % Neutrophils # (Auto) 5.5 1.8-7.7 K/uL Lymphocytes # (Auto) 2.1 1.0-4.8 K/uL Monocytes # (Auto) 1.0 0.1-1.0 K/uL Eosinophils # (Auto) 0.15 0.00-0.70 K/uL Basophils # (Auto) 0.04 0.00-0.20 K/uL Absolute Immature Granulocyte (auto 0.05 0-1 K/uL Nucleated Red Blood Cells 0.0 0.0-0.19 % Sodium Level 140 136-145 mmol/L Potassium Level 3.6 3.5-5.1 mmol/L Chloride Level 101 101-111 mmol/L Carbon Dioxide Level 31 21-32 mmol/L Blood Urea Nitrogen 5 L 7-18 mg/dL Creatinine 0.8 0.5-1.3 mg/dL Glomerular Filtration Rate Calc 121 >90 mL/min Random Glucose 88 70-105 mg/dL Total Calcium 8.5 8.5-10.1 mg/dL Magnesium Level 2.10 1.80-2.40 mg/dL Total Bilirubin 0.7 0.2-1.0 mg/dL Aspartate Amino Transf (AST/SGOT) 20 10-37 U/L Alanine Aminotransferase (ALT/SGPT) 80 H 12-78 U/L Alkaline Phosphatase 84 50-136 U/L Total Protein 7.2 6.0-8.3 g/dL Albumin 2.5 L 3.5-5.0 g/dL Whole Blood Glucose 86 70-110 MG/DL HIV (1&2) Antibody Non-Reactive Negative HIV P24 Antigen, Qualitative Non-Reactive Negative Phosphorus Level 3.5 2.5-4.9 mg/dL Test 04/22/25 19:22 04/22/25 18:51 04/22/25 18:34 04/22/25 17:36 Range/Units Urine Color YELLOW YELLOW Urine Appearance CLEAR CLEAR Urine pH 6.0 5.0-8.0 Urine Specific [place] 1.033 H 1.001-1.031 Urine Protein 50 H NEGATIVE mg/dL Urine Glucose (UA) NEGATIVE NEGATIVE mg/dL Urine Ketones 150 H NEGATIVE mg/dL Urine Occult Blood NEGATIVE NEGATIVE Urine Nitrate NEGATIVE NEGATIVE Urine Bilirubin 0.5 H NEGATIVE mg/dL Urine Urobilinogen 6 H 0.2-1.0 mg/dL Urine Leukocyte Esterase NEGATIVE NEGATIVE Ester/uL Urine RBC 2-5 H 0-1 /HPF Urine WBC 2-5 H 0-1 /HPF Urine Squamous Epithelial Cells RARE 0-2 /HPF Urine Bacteria RARE None Seen /HPF Lactic Acid Level 1.6 0.8-2.5 mmol/L Influenza Type A Antigen Positive For Type A *A NEGATIVE Influenza Type B Antigen Negative For Type B NEGATIVE SARS-CoV-2, RNA, NAAT NEGATIVE SARS CoV-2 NEGATIVE Procalcitonin 0.05 0.05-0.5 ng/mL Test 04/22/25 17:33 Range/Units White Cell Morphology Comment See comments Troponin I High Sensitivity 5 4-75 ng/L Current Medications Medications (Trade) Dose Ordered Sig/Philip Route PRN Reason Start Time Stop Time Status Last Admin Dose Admin Acetaminophen (TYLenol 325MG TAB) 650 mg Q6H PRN PO TEMPERATURE GREATER THAN 101.5 04/22/25 22:00 05/22/25 21:59 04/23/25 01:43 650 MG Albuterol (DUOneb) 1 UDVIAL [id number] IH 04/23/25 00:00 05/23/25 00:00 04/24/25 11:44 1 UDVIAL Atorvastatin Calcium (LIPItor 40MG) 40 mg HS PO 04/23/25 21:00 05/23/25 20:59 04/23/25 22:14 40 MG Colchicine (COLCHicine 0.6mg TAB) 0.6 mg BID PO 04/23/25 09:00 05/23/25 08:59 04/24/25 10:16 0.6 MG Colchicine (COLCHicine 0.6mg TAB) 0.6 mg BID PO 04/23/25 09:00 04/23/25 06:22 DC Enoxaparin Sodium (Lovenox) 40 mg DAILY SQ 04/23/25 09:00 05/23/25 08:59 04/24/25 10:22 40 MG Famotidine (Pepcid 20mg Tab) 20 mg DAILY PO 04/23/25 09:00 05/23/25 08:59 04/24/25 10:16 20 MG Guaifenesin/ Dextromethorphan (RobiTUSSin DM 200/20MG 10ML) 10 ml Q4H PRN PO COUGH 04/22/25 22:00 05/22/25 21:59 Hydralazine HCl (APRESOLine 20MG INJ) 10 mg Q6H PRN IV For:SBP above 160;DBP above 90 04/22/25 22:00 05/22/25 21:59 Lactulose (Constulose 20gm/ 30ml Udcup) 20 gm BID PRN PO CONSTIPATION 04/22/25 22:00 05/22/25 21:59 Levofloxacin/ Dextrose 150 ml @ 100 mls/hr Q24H IV 04/22/25 22:00 05/02/25 21:59 04/23/25 22:15 100 MLS/HR Loratadine/ Pseudoephedrine Sulfate (CLARitin-D 12 HOUR TABLET) 1 each BID PO 04/23/25 09:00 05/23/25 08:59 04/24/25 10:16 1 EACH Morphine Sulfate (morPHINE 4MG SYG) 4 mg Q4H PRN IVP SEVERE PAIN (7-10) 04/22/25 22:00 04/29/25 21:59 04/23/25 17:07 4 MG Ondansetron HCl (zoFRAN 4MG INJ) 4 mg Q6H PRN IV NAUSEA/VOMITING 04/22/25 22:00 05/22/25 21:59 Oseltamivir Phosphate (Tamiflu) 75 mg BID PO 04/23/25 09:00 04/28/25 08:59 04/24/25 10:16 75 MG DIAGNOSTICS / RADIOLOGY: [ ] ASSESSMENT: [ Acute sepsis POA Community-acquired pneumonia POA Obstructive sleep apnea newly diagnosed POA Possible pericarditis diagnosed few days ago at the PCP clinic POA -recent 2D echo does not support active pericarditis. Influenza A positive POA Leukocytosis POA Left pleural effusion Uncontrolled hypertension POA Multifactorial anemia POA Electrolyte imbalance hyponatremia Na 135 POA Hyperlipidemia POA] PLAN: [Continue current management for pneumonia and influenza. No further inpatient cardiac workup indicated at this time. Cardiology recommends outpatient follow-up with Dr. Flynn for ongoing cardiac evaluation. Continue to monitor for any new or recurrent symptoms. Reinforce return precautions and follow-up instructions with patient. We will continue to follow Infectious Disease recommendation Continue with supportive care: GI and DVT prophylaxis repeat labs tomorrow Case discussed with Dr. Martínez, above plan was formulated ATTESTATION BY PHYSICIAN I have seen and examined the patient. I reviewed the documentation, medical decision making, and treatment plan as noted by the mid-level provider above. I agree with the findings and plan of care. RUKHSANA MARTÍNEZ MD, [facility] Apr 24, 2025 14:15
--- NOTE | 2025-04-24 16:18 | NUR ---
1618 call light was answered, patient semi fowlers, sweating, stated feeling chest pain and oriented x4 and able to respond to any questions we asked. Charge nurse was notified, primary notified orders given for troponin x3, 12 lead ekg, and pain medication. After administration of pain medication, patient stated they felt relief. Patient had a temperature of 99.3, other vitals WNL.
[2025-04-25] VITALS (13 sets, daily range): BP systolic 119–133; BP diastolic 71–88; PULSE 85–120; RESP 18–20; TEMP 97.8–99.5; O2SAT 95–98
[2025-04-25 09:35] LABS: NUCLEATED RED BLOOD CELLS 0.0 % (0.0-0.19); PLATELET COUNT (AUTO) 455.0 K/uL (130-400); RED BLOOD CELL COUNT(AUTO) 4.08 MIL/uL (4.50-6.20); RED CELL DISTRIBUTION WIDTH 13.7 % (11.0-15.5); WHITE BLOOD COUNT (AUTO) 8.2 K/uL (4.8-10.8)
[2025-04-25 09:43] LABS: CREATININE 0.8 mg/dL (0.5-1.3); GLOMERULAR FILTR. RATE CALC 121.0 mL/min (>90); GLUCOSE,RANDOM 76.0 mg/dL (70-105); SODIUM SERUM 139.0 mmol/L (136-145); UREA NITROGEN, BLOOD 5.0 mg/dL (7-18)
--- NOTE | 2025-04-25 12:33 | CONS ---
[facility] CONSULTATION NOTE Date Patient Seen: Apr 25, 2025 Time of Visit: 12:32 Supervising Physician: Dr. Sulaiman Alexander Reason for Consultation: Pleural effusion PROBLEM LIST: Left pleural effusion, POA Sepsis present on admission Community-acquired pneumonia, POA Influenza A positive POA Electrolyte derangements (Hypokalemia) Hypertension Multifactorial anemia Hyperlipidemia Obesity, BMI 30.4 HPI: 34-year old male with past medical history of DM type 2, HTN, obesity, PIYUSH with home CPAP that presented to the hospital for pleuritic chest pain that started two days prior to admission. Described pain as sharp and aching to the left lower lobe that hurts more when he takes a deep breath. States he had been sick one week prior to being admitted. Patient also reported fever and cough. On arrival to the ER, WBCs 16.1, left shift neutrophils 87%, urinalysis unremarkable, chemistry unremarkable, flu screen is positive for influenza a, chest x-ray shows left-sided pneumonia with left pleural effusion, lactic acid is unremarkable, procalcitonin is unremarkable additionally patient's temperature was 101.3, heart rate 134, together with leukocytosis and identified source of infection being pneumonia patient met clinical sepsis criteria. Patient was found be positive for influenza A. Patient reports that he was diagnosed clinically with pericarditis in the outpatient setting two weeks ago and was prescribed colchicine. Patient states he has not had any diagnostic radiographic studies to confirm this. He was admitted under hospitalist team and BIS was consulted for further recommendations. Upon assessment, patient is AAOx3. Currently on room air. States he feels improvement in respiratory status. States he hasn't been able to spit any any phlegm. Continues on Tamiflu, Levaquin and nebulizers. CT chest done on 27/06/2024 showed left infiltrate and left pleural effusion. at bedside, questions answered. Thank you for the consult, we will continue to follow. Plan: No thoracentesis, not enough fluid for thoracentesis, will repeat CXR in AM Continue with IV ABX Started on CPT and IS Continue Tamiflu Oxygen supplementation to keep sPO2>90% Further recommendations per hospital course PAST MEDICAL HX: see above PAST SURGICAL HX: noncontributory SOCIAL HISTORY: No tobacco, ETOH, or illicit drug use Coded Allergies: amoxicillin (Unverified Allergy, Unknown, 04/22/25) REVIEW OF SYSTEMS: 12 point ROS reviewed with patient. Pertinent positives mentioned above. Otherwise negative. PHYSICAL EXAM: GENERAL: alert, weak, awake oriented x 3 HEENT: EOMI, Sclera non icteric, moist mucosa NECK: Supple, no JVD, trachea midline LUNGS: Clear breath sounds bilaterally. No wheezes HEART: Regular rate and rhythm. Normal S1 and S2, without murmurs ABD: Abdomen soft, nontender. Bowel sounds present EXT: No clubbing cyanosis or edema NEURO: AAOX3, follows commands Vital Signs (last 8hr) Date Time Temp Pulse Resp B/P (MAP) Pulse Ox O2 Delivery O2 Flow Rate FiO2 04/25/25 11:38 95 20 04/25/25 11:18 98.1 87 18 119/71 97 Room Air 04/25/25 08:00 97 Room Air* 0 21 04/25/25 08:00 97.9 86 18 125/74 97 Room Air 04/25/25 07:31 98 20 N/A Room Air 21 04/25/25 07:31 98 20 LABS: Hematology Labs: Test 04/25/25 04:52 04/24/25 04:50 Range/Units White Blood Count 8.2 4.8-10.8 K/uL Red Blood Count 4.08 L 4.50-6.20 MIL/uL Hemoglobin 11.6 L 14.0-18.0 g/dL Hematocrit 36.9 L 42-54 % Mean Corpuscular Volume 90.4 79-99 fL Mean Corpuscular Hemoglobin 28.4 27.0-33.0 pg Mean Corpuscular Hemoglobin Concent 31.4 L 32.0-36.0 g/dL Red Cell Distribution Width 13.7 11.0-15.5 % Platelet Count 455 H 130-400 K/uL Mean Platelet Volume 8.4 7.5-10.5 fL Nucleated Red Blood Cells 0.0 0.0-0.19 % Immature Granulocyte % (Auto) 0.6 0-1 % Neutrophils (%) (Auto) 62.5 40.0-77.0 % Lymphocytes (%) (Auto) 23.7 21.0-51.0 % Monocytes (%) (Auto) 11.0 3.0-13.0 % Eosinophils (%) (Auto) 1.7 0.0-8.0 % Basophils (%) (Auto) 0.5 0.0-5.0 % Neutrophils # (Auto) 5.5 1.8-7.7 K/uL Lymphocytes # (Auto) 2.1 1.0-4.8 K/uL Monocytes # (Auto) 1.0 0.1-1.0 K/uL Eosinophils # (Auto) 0.15 0.00-0.70 K/uL Basophils # (Auto) 0.04 0.00-0.20 K/uL Absolute Immature Granulocyte (auto 0.05 0-1 K/uL Chemistry Labs: Test 04/25/25 04:52 04/24/25 04:50 04/23/25 17:44 Range/Units Sodium Level 139 136-145 mmol/L Potassium Level 3.5 3.5-5.1 mmol/L Chloride Level 100 L 101-111 mmol/L Carbon Dioxide Level 27 21-32 mmol/L Blood Urea Nitrogen 5 L 7-18 mg/dL Creatinine 0.8 0.5-1.3 mg/dL Glomerular Filtration Rate Calc 121 >90 mL/min Random Glucose 76 70-105 mg/dL Total Calcium 8.5 8.5-10.1 mg/dL Magnesium Level 2.00 1.80-2.40 mg/dL Troponin I High Sensitivity < 4 L 4-75 ng/L Total Bilirubin 0.7 0.2-1.0 mg/dL Aspartate Amino Transf (AST/SGOT) 20 10-37 U/L Alanine Aminotransferase (ALT/SGPT) 80 H 12-78 U/L Alkaline Phosphatase 84 50-136 U/L Total Protein 7.2 6.0-8.3 g/dL Albumin 2.5 L 3.5-5.0 g/dL Whole Blood Glucose 86 70-110 MG/DL DIAGNOSTICS / RADIOLOGY RESULTS: NA Disposition: Per primary team CARISA ALEXANDER GUEST ROOM ATTENDANT Apr 25, 2025 12:33
--- NOTE | 2025-04-25 13:15 | PN ---
[facility] PROGRESS NOTE Date of Service: Apr 25, 2025 Time of Service: 13:09 SUBJECTIVE: [Patient was evaluated today, no chest pain reported today. But he did have CP yesterday afternoon, troponin x 3 negative. Today, during rounds he denies any sob, palpitations. But reported to Dr. Martínez lower back pain. So he recommended renal US. Patient also had moderate pleural effusion, we will request Pulmo. REVIEW OF SYSTEMS CONSTITUTIONAL: Denies fevers, chills, or night sweats. No unintentional weight loss reported. NEUROLOGICAL: Denies headache, amaurosis fugax, sensory deficit, vertigo/spinning sensation, gait abnormalities, or tremors. Complains of generalized body weakness ENT: No hearing loss, otalgia, otorrhea, rhinitis, rhinorrhea, hoarseness, or sore throat. CARDIOVASCULAR: Denies any exertional angina, dyspnea on exertion, orthopnea, paroxysmal nocturnal dyspnea, palpitations, life-threatening arrhythmias, claudication. PULMONARY: Denies any shortness of breath, cough, phlegm/sputum, hemoptysis, pleuritic chest pain. SLEEP: Denies morning headaches, daytime somnolence or napping. Denies difficulty falling asleep, staying asleep, waking from sleep. Denies knowledge of snoring. GASTROINTESTINAL: Denies any type of dysphagia to either liquids or solids. Denies nausea, vomiting, pyrosis, early satiety, abdominal pain, diarrhea, constipation, or changes in stool consistency or caliber. Denies coffee-ground emesis, hematemesis, hematochezia, or melanotic stools. GENITOURINARY: Denies frequency, urgency, nocturia, hematuria or incontinence (Storage/Irritative symptoms.) Low urinary stream, straining to void, urinary intermittency or hesitancy, splitting of the voiding stream, terminal dribbling. ENDOCRINOLOGIC: Denies polyuria, polydipsia, polyphagia or heat/cold intolerances. HEMATOLOGIC: Denies thrombophilia/previous clots, or coagulopathy/bleeding disorders. ONCOLOGIC: Denies personal history of malignancy. DERMATOLOGIC: Denies rashes or pruritus. PSYCHIATRIC: Denies any suicidal or homicidal ideation. Denies hallucinations. PHYSICAL EXAM GENERAL APPEARANCE: The patient is awake, alert, and oriented, in no acute cardiopulmonary distress. NEUROLOGICAL: Cranial nerves II-XII grossly intact. Motor is 5/5 in bilateral upper and lower extremities proximal to distal. No sensory deficits. HEENT: Face is symmetric. Pupils are equal and reactive. Extraocular movements are intact. NECK: Supple. No JVD. No thyromegaly. No submental, submandibular, pre- /postauricular, occipital or supraclavicular lymphadenopathy. CHEST: Normal chest expansion. No Telemetry. LUNGS: Absence of any rales, rhonchi or any wheezing. CARDIOVASCULAR: Regular. S1 and S2 normal. No appreciable rubs, murmurs or gallops. ABDOMEN: Soft, nontender, and nondistended. There is no rebound, voluntary guarding, or rigidity. : Deferred. No Michael. EXTREMITIES: Non-edematous and not cyanotic. No clubbing. Good capillary refill. SKIN: No skin breakdown. Vital Signs (last 8hr) Date Time Temp Pulse Resp B/P (MAP) Pulse Ox O2 Delivery O2 Flow Rate FiO2 04/25/25 11:38 95 20 04/25/25 11:18 98.1 87 18 119/71 97 Room Air 04/25/25 08:00 97 Room Air* 0 21 04/25/25 08:00 97.9 86 18 125/74 97 Room Air 04/25/25 07:31 98 20 N/A Room Air 21 04/25/25 07:31 98 20 LABS: Laboratory: Test 04/25/25 04:52 04/24/25 04:50 04/23/25 17:44 04/23/25 13:42 Range/Units White Blood Count 8.2 4.8-10.8 K/uL Red Blood Count 4.08 L 4.50-6.20 MIL/uL Hemoglobin 11.6 L 14.0-18.0 g/dL Hematocrit 36.9 L 42-54 % Mean Corpuscular Volume 90.4 79-99 fL Mean Corpuscular Hemoglobin 28.4 27.0-33.0 pg Mean Corpuscular Hemoglobin Concent 31.4 L 32.0-36.0 g/dL Red Cell Distribution Width 13.7 11.0-15.5 % Platelet Count 455 H 130-400 K/uL Mean Platelet Volume 8.4 7.5-10.5 fL Nucleated Red Blood Cells 0.0 0.0-0.19 % Sodium Level 139 136-145 mmol/L Potassium Level 3.5 3.5-5.1 mmol/L Chloride Level 100 L 101-111 mmol/L Carbon Dioxide Level 27 21-32 mmol/L Blood Urea Nitrogen 5 L 7-18 mg/dL Creatinine 0.8 0.5-1.3 mg/dL Glomerular Filtration Rate Calc 121 >90 mL/min Random Glucose 76 70-105 mg/dL Total Calcium 8.5 8.5-10.1 mg/dL Magnesium Level 2.00 1.80-2.40 mg/dL Troponin I High Sensitivity < 4 L 4-75 ng/L Immature Granulocyte % (Auto) 0.6 0-1 % Neutrophils (%) (Auto) 62.5 40.0-77.0 % Lymphocytes (%) (Auto) 23.7 21.0-51.0 % Monocytes (%) (Auto) 11.0 3.0-13.0 % Eosinophils (%) (Auto) 1.7 0.0-8.0 % Basophils (%) (Auto) 0.5 0.0-5.0 % Neutrophils # (Auto) 5.5 1.8-7.7 K/uL Lymphocytes # (Auto) 2.1 1.0-4.8 K/uL Monocytes # (Auto) 1.0 0.1-1.0 K/uL Eosinophils # (Auto) 0.15 0.00-0.70 K/uL Basophils # (Auto) 0.04 0.00-0.20 K/uL Absolute Immature Granulocyte (auto 0.05 0-1 K/uL Total Bilirubin 0.7 0.2-1.0 mg/dL Aspartate Amino Transf (AST/SGOT) 20 10-37 U/L Alanine Aminotransferase (ALT/SGPT) 80 H 12-78 U/L Alkaline Phosphatase 84 50-136 U/L Total Protein 7.2 6.0-8.3 g/dL Albumin 2.5 L 3.5-5.0 g/dL Whole Blood Glucose 86 70-110 MG/DL HIV (1&2) Antibody Non-Reactive Negative HIV P24 Antigen, Qualitative Non-Reactive Negative Current Medications Medications (Trade) Dose Ordered Sig/Philip Route PRN Reason Start Time Stop Time Status Last Admin Dose Admin Acetaminophen (TYLenol 325MG TAB) 650 mg Q6H PRN PO TEMPERATURE GREATER THAN 101.5 04/22/25 22:00 05/22/25 21:59 04/23/25 01:43 650 MG Albuterol (DUOneb) 1 UDVIAL Q1QLRST IH 04/23/25 00:00 05/23/25 00:00 04/25/25 11:38 1 UDVIAL Atorvastatin Calcium (LIPItor 40MG) 40 mg HS PO 04/23/25 21:00 05/23/25 20:59 04/24/25 20:08 40 MG Colchicine (COLCHicine 0.6mg TAB) 0.6 mg BID PO 04/23/25 09:00 05/23/25 08:59 04/25/25 09:27 0.6 MG Colchicine (COLCHicine 0.6mg TAB) 0.6 mg BID PO 04/23/25 09:00 04/23/25 06:22 DC Enoxaparin Sodium (Lovenox) 40 mg DAILY SQ 04/23/25 09:00 05/23/25 08:59 04/25/25 09:29 40 MG Famotidine (Pepcid 20mg Tab) 20 mg DAILY PO 04/23/25 09:00 05/23/25 08:59 04/25/25 09:27 20 MG Guaifenesin/ Dextromethorphan (RobiTUSSin DM 200/20MG 10ML) 10 ml Q4H PRN PO COUGH 04/22/25 22:00 05/22/25 21:59 Hydralazine HCl (APRESOLine 20MG INJ) 10 mg Q6H PRN IV For:SBP above 160;DBP above 90 04/22/25 22:00 05/22/25 21:59 Lactulose (Constulose 20gm/ 30ml Udcup) 20 gm BID PRN PO CONSTIPATION 04/22/25 22:00 05/22/25 21:59 Levofloxacin/ Dextrose 150 ml @ 100 mls/hr Q24H IV 04/22/25 22:00 05/02/25 21:59 04/24/25 22:16 100 MLS/HR Loratadine/ Pseudoephedrine Sulfate (CLARitin-D 12 HOUR TABLET) 1 each BID PO 04/23/25 09:00 05/23/25 08:59 04/25/25 09:27 1 EACH Morphine Sulfate (morPHINE 4MG SYG) 4 mg Q4H PRN IVP SEVERE PAIN (7-10) 04/22/25 22:00 04/29/25 21:59 04/25/25 00:01 4 MG Ondansetron HCl (zoFRAN 4MG INJ) 4 mg Q6H PRN IV NAUSEA/VOMITING 04/22/25 22:00 05/22/25 21:59 Oseltamivir Phosphate (Tamiflu) 75 mg BID PO 04/23/25 09:00 04/28/25 08:59 04/25/25 09:28 75 MG DIAGNOSTICS / RADIOLOGY: [ ] ASSESSMENT: [Hypokalemia Moderate pleural effusion by CT chest, POA Acute sepsis POA Community-acquired pneumonia POA Obstructive sleep apnea newly diagnosed POA Possible pericarditis diagnosed few days ago at the PCP clinic POA -recent 2D echo does not support active pericarditis. Influenza A positive POA Leukocytosis POA Left pleural effusion Uncontrolled hypertension POA Multifactorial anemia POA Electrolyte imbalance hyponatremia Na 135 POA Hyperlipidemia POA] PLAN: [Continue current management for pneumonia and influenza. We will consult Pulmo re: pleural effusion We will start potassium protocol and magnesium No further inpatient cardiac workup indicated at this time. Cardiology recommends outpatient follow-up with Dr. Flynn for ongoing cardiac evaluation. Continue to monitor for any new or recurrent symptoms. Reinforce return precautions and follow-up instructions with patient. We will continue to follow Infectious Disease recommendation Continue with supportive care: GI and DVT prophylaxis repeat labs tomorrow Case discussed with Dr. Martínez, above plan was formulated ATTESTATION BY PHYSICIAN I have seen and examined the patient. I reviewed the documentation, medical decision making, and treatment plan as noted by the mid-level provider above. I agree with the findings and plan of care. RUKHSANA MARTÍNEZ MD, [facility] Apr 25, 2025 13:15
[2025-04-25] MEDS: ALBUTEROL 0.083% 2.5 MG/3 ML INH IH ONE (23:24)
[2025-04-26] VITALS (8 sets, daily range): BP systolic 120–131; BP diastolic 6–79; PULSE 84–108; RESP 18–20; TEMP 97.5–98.1; O2SAT 97–98
[2025-04-26 05:15] LABS: NUCLEATED RED BLOOD CELLS 0.0 % (0.0-0.19); PLATELET COUNT (AUTO) 488.0 K/uL (130-400); RED BLOOD CELL COUNT(AUTO) 4.2 MIL/uL (4.50-6.20); RED CELL DISTRIBUTION WIDTH 13.4 % (11.0-15.5); WHITE BLOOD COUNT (AUTO) 7.3 K/uL (4.8-10.8)
[2025-04-26 05:24] LABS: CREATININE 0.9 mg/dL (0.5-1.3); GLOMERULAR FILTR. RATE CALC 116.0 mL/min (>90); GLUCOSE,RANDOM 80.0 mg/dL (70-105); SODIUM SERUM 140.0 mmol/L (136-145); UREA NITROGEN, BLOOD 8.0 mg/dL (7-18)
--- NOTE | 2025-04-26 05:57 | HMCIMG ---
EXAMINATION: ULTRASOUND OF THE RETROPERITONEUM. CLINICAL HISTORY: Pain in the back flank area. COMPARISON: None. TECHNIQUE: Real-time grayscale ultrasound images of the kidneys. FINDINGS: The kidneys are normal in caliber, the right kidney measures 12.2 x 5.4 x 4.4 cm and the left kidney measures 12.8 x 5.4 x 4.7 cm in its craniocaudal, AP, and transverse dimensions respectively. There is normal renal cortical thickness, and increased cortical echogenicity. There is no renal calculus or hydronephrosis. The urinary bladder is normal in caliber and wall thickness (0.3 cm). There are no calculi in the urinary bladder. The prostate gland is normal in caliber and measures 3.5 x 2.5 x 2.7 cm in the craniocaudal, AP, and transverse dimensions respectively with a volume of 16 cc. IMPRESSION: Increased echogenicity of both the kidneys may reflect renal parenchymal disease. Recommend clinical correlation with laboratory parameters. /[place]
--- NOTE | 2025-04-26 06:23 | CONS ---
This is a remote visit due to infectious precautions. CHIEF COMPLAINT: Pericarditis. REQUESTING PROVIDER: Lanie Joyner NP SOURCE: The medical record. HISTORY OF PRESENT ILLNESS: The patient is a 34-year-old male with a history of obesity and gout who presented to the ER after several days of left-sided pleuritic chest pain, worse with deep breathing and cough. On arrival to the ER, his white count was 16,000, flu screen positive for influenza A and chest x-ray showed left-sided pneumonia and pleural effusion. Temperature was 101.3 and he was tachycardic at 134. He was started on Tamiflu and IV Levaquin. The patient was diagnosed with pericarditis about 2 weeks ago and started on colchicine 0.6 b.i.d., which was continued in the hospital. CT chest was performed today but there are no results yet. Echo revealed EF of 45%, severely reduced RV function, mild global hypokinesis. The patient has defervesced. Due to the reported history of recent pericarditis, Cardiology was consulted by Lanie Joyner NP, for pericarditis, despite there being no EKG available in the chart. RECOMMENDATIONS: Recommend asking the patient who his outpatient shipping supervisor is and then consulting that physician. Also, recommend obtaining an EKG. TID: [id number] RECEIPT: [id number]
--- NOTE | 2025-04-26 07:38 | EKG ---
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
[2025-04-26] MEDS: ALBUTEROL 0.083% 2.5 MG/3 ML INH IH ONE (07:43)
--- NOTE | 2025-04-26 10:03 | PN ---
[facility] PROGRESS NOTE Date of Service: Apr 26, 2025 Time of Service: 09:57 Attending doctor Mauricio SUBJECTIVE: [04/25 Patient was evaluated today, no chest pain reported today. But he did have CP yesterday afternoon, troponin x 3 negative. Today, during rounds he denies any sob, palpitations. But reported to Dr. Martínez lower back pain. So he recommended renal US. Patient also had moderate pleural effusion, we will request Pulmo. 04/26/25 patient was seen by nurse practitioner physician during rounding in room 330. Patient was evaluated by the wellness instructor and per his recommendation he is asking that we consult his wellness instructor that the patient is seen. Unfortunately his wellness instructor is Dr. Gee BRUCE, who does not have any privileges at this hospital so that is why we requested [facility] to evaluate the patient. 2D echo showed EF of 45% normal function with the exception that right ventricular function is severely reduced. Also as per Doyle Meraz, no EKG available in the chart. Nurse practitioner, myself and charge nurse Camelia, both check and there three EKGs available in the chart for this patient from three different days. Nurse practitioner reach out to [facility] and informed him about . We are pending further evaluation/recommendat ions by wellness instructor at this moment. As per precision lathe operator no need for thoracentesis since there was not enough fluids. Chest x-ray to be repeat in a.m.. We will continue antibiotics for levofloxacin and we will continue Tamiflu for influenza A positive. At this moment we are pending further recommendations of antibiotics from ID for outpatient settings. A.m. labs REVIEW OF SYSTEMS CONSTITUTIONAL: Denies fevers, chills, or night sweats. No unintentional weight loss reported. NEUROLOGICAL: Denies headache, amaurosis fugax, sensory deficit, vertigo/spinning sensation, gait abnormalities, or tremors. Complains of generalized body weakness ENT: No hearing loss, otalgia, otorrhea, rhinitis, rhinorrhea, hoarseness, or sore throat. CARDIOVASCULAR: Denies any exertional angina, dyspnea on exertion, orthopnea, paroxysmal nocturnal dyspnea, palpitations, life-threatening arrhythmias, claudication. PULMONARY: Denies any shortness of breath, cough, phlegm/sputum, hemoptysis, pleuritic chest pain. SLEEP: Denies morning headaches, daytime somnolence or napping. Denies difficulty falling asleep, staying asleep, waking from sleep. Denies knowledge of snoring. GASTROINTESTINAL: Denies any type of dysphagia to either liquids or solids. Denies nausea, vomiting, pyrosis, early satiety, abdominal pain, diarrhea, constipation, or changes in stool consistency or caliber. Denies coffee-ground emesis, hematemesis, hematochezia, or melanotic stools. GENITOURINARY: Denies frequency, urgency, nocturia, hematuria or incontinence (Storage/Irritative symptoms.) Low urinary stream, straining to void, urinary intermittency or hesitancy, splitting of the voiding stream, terminal dribbling. ENDOCRINOLOGIC: Denies polyuria, polydipsia, polyphagia or heat/cold intolerances. HEMATOLOGIC: Denies thrombophilia/previous clots, or coagulopathy/bleeding disorders. ONCOLOGIC: Denies personal history of malignancy. DERMATOLOGIC: Denies rashes or pruritus. PSYCHIATRIC: Denies any suicidal or homicidal ideation. Denies hallucinations. PHYSICAL EXAM GENERAL APPEARANCE: The patient is awake, alert, and oriented, in no acute cardiopulmonary distress. NEUROLOGICAL: Cranial nerves II-XII grossly intact. Motor is 5/5 in bilateral upper and lower extremities proximal to distal. No sensory deficits. HEENT: Face is symmetric. Pupils are equal and reactive. Extraocular movements are intact. NECK: Supple. No JVD. No thyromegaly. No submental, submandibular, pre- /postauricular, occipital or supraclavicular lymphadenopathy. CHEST: Normal chest expansion. No Telemetry. LUNGS: Absence of any rales, rhonchi or any wheezing. CARDIOVASCULAR: Regular. S1 and S2 normal. No appreciable rubs, murmurs or gallops. ABDOMEN: Soft, nontender, and nondistended. There is no rebound, voluntary guarding, or rigidity. : Deferred. No Michael. EXTREMITIES: Non-edematous and not cyanotic. No clubbing. Good capillary refill. SKIN: No skin breakdown. Vital Signs (last 8hr) Date Time Temp Pulse Resp B/P (MAP) Pulse Ox O2 Delivery O2 Flow Rate FiO2 04/26/25 07:47 95 18 04/26/25 07:45 95 20 N/A Room Air 21 04/26/25 04:00 97.9 98 18 121/6 92 LABS: Laboratory: Test 04/26/25 03:56 04/25/25 04:52 Range/Units White Blood Count 7.3 4.8-10.8 K/uL Red Blood Count 4.20 L 4.50-6.20 MIL/uL Hemoglobin 12.0 L 14.0-18.0 g/dL Hematocrit 37.1 L 42-54 % Mean Corpuscular Volume 88.3 79-99 fL Mean Corpuscular Hemoglobin 28.6 27.0-33.0 pg Mean Corpuscular Hemoglobin Concent 32.3 32.0-36.0 g/dL Red Cell Distribution Width 13.4 11.0-15.5 % Platelet Count 488 H 130-400 K/uL Mean Platelet Volume 8.2 7.5-10.5 fL Nucleated Red Blood Cells 0.0 0.0-0.19 % Sodium Level 140 136-145 mmol/L Potassium Level 3.6 3.5-5.1 mmol/L Chloride Level 101 101-111 mmol/L Carbon Dioxide Level 29 21-32 mmol/L Blood Urea Nitrogen 8 7-18 mg/dL Creatinine 0.9 0.5-1.3 mg/dL Glomerular Filtration Rate Calc 116 >90 mL/min Random Glucose 80 70-105 mg/dL Total Calcium 8.7 8.5-10.1 mg/dL Magnesium Level 2.10 1.80-2.40 mg/dL Troponin I High Sensitivity < 4 L 4-75 ng/L Current Medications Medications (Trade) Dose Ordered Sig/Philip Route PRN Reason Start Time Stop Time Status Last Admin Dose Admin Acetaminophen (TYLenol 325MG TAB) 650 mg Q6H PRN PO TEMPERATURE GREATER THAN 101.5 04/22/25 22:00 05/22/25 21:59 04/23/25 01:43 650 MG Albuterol (DUOneb) 1 UDVIAL [id number] IH 04/23/25 00:00 05/23/25 00:00 04/25/25 18:42 1 UDVIAL Atorvastatin Calcium (LIPItor 40MG) 40 mg HS PO 04/23/25 21:00 05/23/25 20:59 04/25/25 21:24 40 MG Colchicine (COLCHicine 0.6mg TAB) 0.6 mg BID PO 04/23/25 09:00 05/23/25 08:59 04/26/25 09:00 0.6 MG Colchicine (COLCHicine 0.6mg TAB) 0.6 mg BID PO 04/23/25 09:00 04/23/25 06:22 DC Enoxaparin Sodium (Lovenox) 40 mg DAILY SQ 04/23/25 09:00 05/23/25 08:59 04/26/25 08:59 40 MG Famotidine (Pepcid 20mg Tab) 20 mg DAILY PO 04/23/25 09:00 05/23/25 08:59 04/26/25 09:00 20 MG Guaifenesin/ Dextromethorphan (RobiTUSSin DM 200/20MG 10ML) 10 ml Q4H PRN PO COUGH 04/22/25 22:00 05/22/25 21:59 Hydralazine HCl (APRESOLine 20MG INJ) 10 mg Q6H PRN IV For:SBP above 160;DBP above 90 04/22/25 22:00 05/22/25 21:59 Lactulose (Constulose 20gm/ 30ml Udcup) 20 gm BID PRN PO CONSTIPATION 04/22/25 22:00 05/22/25 21:59 Levofloxacin/ Dextrose 150 ml @ 100 mls/hr Q24H IV 04/22/25 22:00 05/02/25 21:59 04/25/25 21:30 100 MLS/HR Loratadine/ Pseudoephedrine Sulfate (CLARitin-D 12 HOUR TABLET) 1 each BID PO 04/23/25 09:00 05/23/25 08:59 04/26/25 08:59 1 EACH Morphine Sulfate (morPHINE 4MG SYG) 4 mg Q4H PRN IVP SEVERE PAIN (7-10) 04/22/25 22:00 04/29/25 21:59 04/25/25 00:01 4 MG Ondansetron HCl (zoFRAN 4MG INJ) 4 mg Q6H PRN IV NAUSEA/VOMITING 04/22/25 22:00 05/22/25 21:59 Oseltamivir Phosphate (Tamiflu) 75 mg BID PO 04/23/25 09:00 04/28/25 08:59 04/26/25 09:00 75 MG DIAGNOSTICS / RADIOLOGY: [ ] ASSESSMENT: [Hypokalemia Moderate pleural effusion by CT chest, POA Acute sepsis POA Community-acquired pneumonia POA Obstructive sleep apnea newly diagnosed POA Possible pericarditis diagnosed few days ago at the PCP clinic POA -recent 2D echo does not support active pericarditis. Influenza A positive POA Leukocytosis POA Left pleural effusion Uncontrolled hypertension POA Multifactorial anemia POA Electrolyte imbalance hyponatremia Na 135 POA Hyperlipidemia POA] PLAN: [Patient was evaluated by the wellness instructor and per his recommendation he is asking that we consult his wellness instructor that the patient is seen. Unfortunately his wellness instructor is Dr. Gee BRUCE, who does not have any privileges at this hospital so that is why we requested [facility] to evaluate the patient. 2D echo showed EF of 45% normal function with the exception that right ventricular function is severely reduced. Also as per Doyle Meraz, no EKG available in the chart. Nurse practitioner, myself and charge nurse Camelia, both check and there three EKGs available in the chart for this patient from three different days. Nurse practitioner reach out to [facility] and informed him about . We are pending further evaluation/recommendations by wellness instructor at this moment. As per precision lathe operator no need for thoracentesis since there was not enough fluids. Chest x-ray to be repeat in a.m.. We will continue antibiotics for levofloxacin and we will continue Tamiflu for influenza A positive. At this moment we are pending further recommendations of antibiotics from ID for outpatient settings. A.m. labs Continue current management for pneumonia and influenza. We will consult Pulmo re: pleural effusion We will start potassium protocol and magnesium No further inpatient cardiac workup indicated at this time. Continue to monitor for any new or recurrent symptoms. Reinforce return precautions and follow-up instructions with patient. We will continue to follow Infectious Disease recommendation Continue with supportive care: GI and DVT prophylaxis repeat labs tomorrow Case discussed with Dr. Martínez, above plan was formulated ATTESTATION BY PHYSICIAN I have seen and examined the patient. I reviewed the documentation, medical decision making, and treatment plan as noted by the mid-level provider above. I agree with the findings and plan of care. RUKHSANA MARTÍNEZ MD, KATARZYNA B [facility] Apr 26, 2025 10:03
--- NOTE | 2025-04-26 11:10 | PN ---
INFECTIOUS DISEASE FOLLOWUP NOTE DATE OF SERVICE: 04/24/2025 SUBJECTIVE: The patient is seen and examined at the bedside today. Cough is improving. No hemoptysis. No chest pain. Tolerating antibiotic. No rashes or itchiness. PHYSICAL EXAMINATION: VITAL SIGNS: Temperature 98.3. EYES: No icterus. Pupils equal and reactive. HENT: No oral lesions. Moist oral mucosa NECK: Supple. No JVD or thyromegaly. LUNGS: Good air entry. No rales. No rhonchi. CARDIOVASCULAR: S1 and S2, regular. No murmur. No gallop. ABDOMEN: Full, soft, nontender. There is no organomegaly. CENTRAL NERVOUS SYSTEM: Awake, alert and oriented x3. No focal deficits. SKIN: No rashes. No itchiness. LYMPHATIC: No peripheral lymphadenopathy. BACK: No deformity. No pressure ulcer. ASSESSMENT: A 35-year-old male with multiple problems. * Community acquired pneumonia. * . * Obesity. PLAN: * Continue levofloxacin. * Continue Plavix. * Followup cultures. * . * . TID: [id number] RECEIPT: [id number]
--- NOTE | 2025-04-26 12:48 | PN ---
INFECTIOUS DISEASE PROGRESS NOTE Date of Service: Apr 26, 2025 SUBJECTIVE: This is a 34-year-old male patient pneumonia and positive influenza type A. Continue azithromycin and Tamiflu. Patient is cleared for discharged from Infectious Disease standpoint. Patient can be discharged on levofloxacin 750 mg daily for 5 more days. Prescription was written. PHYSICAL EXAM EYES: Anicteric. Pupils equal and reactive. HENT: No oral thrush seen, moist Oral mucosa NECK: Supple, no JVD or thyromegaly. LUNGS: Good air entry. Productive cough. CARDIOVASCULAR: S1, S2 regular. No murmur heard. ABDOMEN: Soft, non tender, bowel sounds present. CENTRAL NERVOUS SYSTEM: Awake, alert, oriented x 3. SKIN: No rashes, no swelling. LYMPHATICS: No peripheral lymphadenopathy MUSCULOSKELETAL: No joint swelling, erythema or tenderness. EXTREMITIES: No cyanosis or clubbing. BACK: No deformity, no pressure ulcer. GENITOURINARY: No dysuria or hematuria. Vital Sign (Last 12 Hours) 04/26/25 04/26/25 04/26/25 04/26/25 04:00 07:45 07:47 08:00 Temp 97.9 97.5 Pulse 98 95 95 84 Resp 18 20 18 19 B/P (MAP) 121/6 121/76 Pulse Ox 92 98 O2 Delivery N/A Room Air Room Air FiO2 21 21 04/26/25 11:36 Pulse 86 Resp 18 Intake & Output (last 24hrs) 04/25/25 04/25/25 04/26/25 15:00 23:00 07:00 Intake Total 480 ml 390.0 ml Balance 480 ml 390.0 ml LABS: Laboratory: Test 04/26/25 03:56 04/25/25 04:52 Range/Units White Blood Count 7.3 4.8-10.8 K/uL Red Blood Count 4.20 L 4.50-6.20 MIL/uL Hemoglobin 12.0 L 14.0-18.0 g/dL Hematocrit 37.1 L 42-54 % Mean Corpuscular Volume 88.3 79-99 fL Mean Corpuscular Hemoglobin 28.6 27.0-33.0 pg Mean Corpuscular Hemoglobin Concent 32.3 32.0-36.0 g/dL Red Cell Distribution Width 13.4 11.0-15.5 % Platelet Count 488 H 130-400 K/uL Mean Platelet Volume 8.2 7.5-10.5 fL Nucleated Red Blood Cells 0.0 0.0-0.19 % Sodium Level 140 136-145 mmol/L Potassium Level 3.6 3.5-5.1 mmol/L Chloride Level 101 101-111 mmol/L Carbon Dioxide Level 29 21-32 mmol/L Blood Urea Nitrogen 8 7-18 mg/dL Creatinine 0.9 0.5-1.3 mg/dL Glomerular Filtration Rate Calc 116 >90 mL/min Random Glucose 80 70-105 mg/dL Total Calcium 8.7 8.5-10.1 mg/dL Magnesium Level 2.10 1.80-2.40 mg/dL Troponin I High Sensitivity < 4 L 4-75 ng/L DIAGNOSTICS / RADIOLOGY: PATIENT: RUKHSANA MERCHANT MR#: [id number] : 1990 SEX: M AGE: 34 LOCATION: [facility] ORDER 7 STATUS: ADM IN REPORT#: [id number] SERVICE 7 REASON: pna ORDERING PHYSICIAN: JAMEY FERRERA GARDENING MANAGER PROCEDURE: CHEST WO - CT CHEST W/O CONTRAST EXAM: CT Chest Without IV contrast. CLINICAL HISTORY: pna TECHNIQUE: Axial computed tomography images of the chest without intravenous contrast. COMPARISON: CR - CHEST 1VW - 04/22/25 FINDINGS: LUNGS: No pulmonary mass. The lungs appear essentially clear. PLEURAL SPACES: No pneumothorax evident. Moderate fluid in the right pleural cavity with underlying segmental collapse. Trace fluid in the left pleural cavity with underlying subsegmental collapse. HEART: No cardiomegaly. Mild pericardial effusion. LYMPH NODES: No lymphadenopathy is evident. UPPER ABDOMEN: Fatty liver. The rest of the upper abdominal solid organs are unremarkable. BONES: No acute osseous abnormality. IMPRESSION: 1. Moderate right pleural effusion with segmental atelectasis. Trace left pleural effusion with subsegmental atelectasis. Pulmonary infiltrates. 2. Mild pericardial effusion. 3. Fatty liver. /[place] DICTATED BY: DIVYA ESQUIVEL MD DATE: 04/24/25 1000 ELECTRONICALLY SIGNED BY: DIVYA ESQUIVEL MD DATE: 04/24/25 1000 ASSESSMENT: Left lower lobe pneumonia. Influenza viral infection type A. Leukocytosis, improving. Left pleural effusion. Prediabetes mellitus. Anxiety. PLAN: Continue levofloxacin. Continue Tamiflu. Patient can be discharged on levofloxacin 750 mg daily for 5 more days. Prescription was written. This case was reviewed and discussed with my supervising physician Dr. Kay and the above assessment and plan was formulated and agreed upon. ATTESTATION BY PHYSICIAN I have seen and examined the patient. I reviewed the documentation, medical decision making, and treatment plan as noted by the mid-level provider above. I agree with the findings and plan of care. FAN KAY MD, MIRTA L [facility] Apr 26, 2025 12:48
--- NOTE | 2025-04-26 14:42 | HMCIMG ---
EXAM: CR Chest, 1 View. CLINICAL HISTORY: pleural effusoin COMPARISON: CR chest of 04/22/2025. CT chest dated 04/23/2025 FINDINGS: LUNGS: Small to medium right pleural effusions with adjacent lung atelectasis. Interval reduction in the left lower zone airspace disease. PLEURAL SPACES: No pneumothorax. The left CP angle is excluded from the field of view. MEDIASTINUM: Cardiac size is stable. BONES: No acute osseous abnormality. IMPRESSION: 1. Small to medium right pleural effusion with adjacent lung atelectasis, more pronounced since the previous radiograph. 2. Interval reduction in left lower zone airspace disease. /[place]
--- NOTE | 2025-04-26 15:59 | DS ---
Discharge Summary Hospital Course Summary: DATE OF ADMISSION:[04/22/2025] DATE OF DISCHARGE:[04/26/2025] DISPOSITION:[Home] CONDITION:[Medically stable] CONSULTANTS:[Trapper Bird, ID] FOLLOW UP APPOINTMENTS:[PCP 2 to 3 days. Trapper Bird within one week] PROCEDURES:[None] IMAGING: report attached to summary MICROBIOLOGY: report attached to summary ACTIVITY:[Independent] HOME MEDICATIONS: see [facility] NEW MEDICATIONS:[Atorvastatin, famotidine, Tamiflu. Patient also received a prescription for levofloxacin as prescribed by ID.] EMERGENCY INSTRUCTIONS: The patient was instructed to present to the nearest Emergency departmentr or call 911 once their symptoms will return or worsen Corrections Caseworker(s): Patient is 34 years old male who came to emergency department with a chief complaint of pleuritic chest pain that was going on for the two days prior coming to the emergency department. During evaluation patient was found to have influenza a and was placed on Tamiflu. Patient also stated that he might have pericarditis and was started on colchicine outpatient by his water proofer Dr. Flynn. Trapper Bird was consulted here at [facility]. WBC on admission 10.1 patient was placed on Levaquin. Chest x-ray showed pneumonia. CT chest showed moderate right pleural effusion with segmental atelectasis. Trace left pleural effusion with subsegmental atelectasis. Pulmonary infiltrate final mild pericardial effusion and fatty liver. 2D echo showed EF of 45% with left ventricle diastolic function normal. Right ventricular systolic function was severely reduced. At some point patient's creatinine also worsened and ultrasound renal was performed which showed increase echogenicity of both kidneys may reflect renal parenchymal disease. Patient was evaluated by the water proofer from [facility] and as per their recommendation patient is cleared to be discharged home and follow up with his water proofer outpatient within one week. Patient was also cleared by ID to be discharged on levofloxacin 750 mg p.o. daily x5 days. Patient was advised to follow up with PCP in 2 to 3 days. Patient denies any shortness of breath, chest pain, nausea, vomiting or any other discomfort. Procedure(s): REVIEW OF SYSTEMS CONSTITUTIONAL: Denies fevers, chills, or night sweats. No unintentional weight loss reported. NEUROLOGICAL: Denies headache, amaurosis fugax, sensory deficit, vertigo/spinning sensation, gait abnormalities, or tremors. ENT: No hearing loss, otalgia, otorrhea, rhinitis, rhinorrhea, hoarseness, or sore throat. CARDIOVASCULAR: Denies any exertional angina, dyspnea on exertion, orthopnea, paroxysmal nocturnal dyspnea, palpitations, life-threatening arrhythmias, claudication. PULMONARY: Denies any shortness of breath, cough, phlegm/sputum, hemoptysis, pleuritic chest pain. SLEEP: Denies morning headaches, daytime somnolence or napping. Denies difficulty falling asleep, staying asleep, waking from sleep. Denies knowledge of snoring. GASTROINTESTINAL: Denies any type of dysphagia to either liquids or solids. D enies nausea, vomiting, pyrosis, early satiety, abdominal pain, diarrhea, constipation, or changes in stool consistency or caliber. Denies coffee-ground emesis, hematemesis, hematochezia, or melanotic stools. GENITOURINARY: Denies frequency, urgency, nocturia, hematuria or incontinence (Storage/Irritative symptoms.) Low urinary stream, straining to void, urinary intermittency or hesitancy, splitting of the voiding stream, terminal dribbling. ENDOCRINOLOGIC: Denies polyuria, polydipsia, polyphagia or heat/cold intolerances. HEMATOLOGIC: Denies thrombophilia/previous clots, or coagulopathy/bleeding disorders. ONCOLOGIC: Denies personal history of malignancy. DERMATOLOGIC: Denies rashes or pruritus. PSYCHIATRIC: Denies any suicidal or homicidal ideation. Denies hallucinations. PHYSICAL EXAM GENERAL APPEARANCE: The patient is awake, alert, and oriented, in no acute cardiopulmonary distress. NEUROLOGICAL: Cranial nerves II-XII grossly intact. Motor is 5/5 in bilateral upper and lower extremities proximal to distal. No sensory deficits. HEENT: Face is symmetric. Pupils are equal and reactive. Extraocular movements are intact. NECK: Supple. No JVD. No thyromegaly. No submental, submandibular, pre- /postauricular, occipital or supraclavicular lymphadenopathy. CHEST: Normal chest expansion. No Telemetry. LUNGS: Absence of any rales, rhonchi or any wheezing. CARDIOVASCULAR: Regular. S1 and S2 normal. No appreciable rubs, murmurs or gallops. ABDOMEN: Soft, nontender, and nondistended. There is no rebound, voluntary guarding, or rigidity. : Deferred. No Michael. EXTREMITIES: Non-edematous and not cyanotic. No clubbing. Good capillary refill. SKIN: No skin breakdown. Assessment/Plan: ASSESSMENT: [Hypokalemia Moderate pleural effusion by CT chest, POA Acute sepsis POA Community-acquired pneumonia POA Obstructive sleep apnea newly diagnosed POA Possible pericarditis diagnosed few days ago at the PCP clinic POA -recent 2D echo does not support active pericarditis. Influenza A positive POA Leukocytosis POA Left pleural effusion Uncontrolled hypertension POA Multifactorial anemia POA Electrolyte imbalance hyponatremia Na 135 POA Hyperlipidemia POA] Home Medications: Reported Medications Loratadine/Pseudoephedrine (Claritin-D 12 Hour Tablet) 5 Mg-120 Mg Tab.er.12h, 1 TAB PO BID for 10 Days, #20 TAB 0 Refills 04/23/25 Colchicine (Colchicine) 0.6 Mg Tablet, 1 TAB PO BID for gout pain for 30 Days, #60 TAB 0 Refills 04/23/25 Time spent arranging discharge: 31-60 minutes ATTESTATION BY PHYSICIAN I have seen and examined the patient. I reviewed the documentation, medical decision making, and treatment plan as noted by the mid-level provider above. I agree with the findings and plan of care. RUKHSANA CEE MD, [facility] Apr 26, 2025 15:59
--- NOTE | 2025-04-26 16:50 | PN ---
INFECTIOUS DISEASES FOLLOWUP NOTE DATE OF SERVICE: 04/25/2025 SUBJECTIVE: The patient is seen and examined at the bedside today. No fever and no chills. No nausea, vomiting. Tolerating antibiotics. No chest pain. No palpitations or orthopnea. Cough is better. PHYSICAL EXAMINATION: VITAL SIGNS: Temperature 98.2. EYES: No icterus. Pupils equal and reactive. HENT: No oral thrush seen. Moist oral mucosa. NECK: Supple. No JVD or thyromegaly. LUNGS: Good air entry. Crackles bilaterally. CARDIOVASCULAR: S1 and S2, regular. No murmur heard. ABDOMEN: Full, soft and nontender. Bowel sounds present. CENTRAL NERVOUS SYSTEM: Awake, alert and oriented x 3. No focal deficits. SKIN: No rashes. No itchiness. LYMPHATICS: No peripheral lymphadenopathy. BACK: No deformity. No pressure ulcer. . ASSESSMENT: A 34-year-old male with multiple problems which include: * Pneumonia. * Pulmonary influenza infection. * Pleural effusion. * Obesity. PLAN: * Continue Tamiflu. * Continue levofloxacin. * Continue . * Continue pain management. * Continue nutritional support. TID: [id number] RECEIPT: [id number]
--- NOTE | 2025-04-26 17:50 | NUR ---
DISCHARGE PT PIV DC'D PT VERBALIZED UNDERSTANDING OF DISCHARGE INSTRUCTIONS PT HAD NO FURTHER QUESTIONS AT TIME OF DISCHARGE PT GATHERED AND TOOK ALL BELONGINGS
[2025-04-26] MEDS ORDERED: ALBUTEROL 0.083% 2.5 MG/3 ML INH IH ONE (17:52)
--- NOTE | 2025-04-26 20:19 | EKG ---
[facility] Test Date: 2025-04-23 Test Time: 18:41:54 Pat Name: RUKHSANA MERCHANT Department: [facility] Room: 330 1 Gender: M Supervisor Carding: RADHIKA MAYORGA : 1990 Requested By: LESLIE TORRES Order Number: [id number] Reading MD: Terry Mccarthy Measurements Intervals [place] Rate: 118 P: 14 AK: 146 QRS: 15 QRSD: 96 T: 49 QT: 312 QTc: 437 Interpretive Statements Sinus tachycardia Possible Left atrial enlargement Nonspecific T wave abnormality Compared to ECG 04/22/2025 16:36:11 T-wave abnormality now present Electronically Signed On 04-27-2025 23:38:41 ASSOCIATE STORE MANAGER by Terry Mccarthy Please click the below link to view image of tracing.
--- NOTE | 2025-04-26 23:30 | PN ---
[facility] PROGRESS NOTE Date Patient Seen: Apr 26, 2025 Time of Visit: 23:28 Supervising Physician: HAY HAQ MD PROBLEM LIST: Acute sepsis on admission Community acquired pneumonia Influenza A on admission Hyperlipidemia Left lung pleural effusion Obesity, BMI 30 INTERVAL HISTORY: Patient is awake and alert No acute distress, on room air Afebrile, good appetite, no nausea or vomiting no diarrhea, denies chest pain, denies hemoptysis Overall, hemodynamically stable REVIEW OF SYSTEMS: 12 point ROS reviewed with patient. Pertinent positives mentioned above. Otherwise negative. PHYSICAL EXAM: GENERAL: alert, weak, awake oriented x 3 HEENT: EOMI, Sclera non icteric, moist mucosa NECK: Supple, no JVD, trachea midline LUNGS: Clear breath sounds bilaterally. No wheezes HEART: Regular rate and rhythm. Normal S1 and S2, without murmurs ABD: Abdomen soft, nontender. Bowel sounds present EXT: No clubbing cyanosis or edema NEURO: AAOX3, follows commands Vital Signs (last 8hr) Date Time Temp Pulse Resp B/P (MAP) Pulse Ox O2 Delivery O2 Flow Rate FiO2 04/26/25 16:00 98.1 88 18 131/79 96 Room Air LABS: Hematology Labs: Test 04/26/25 03:56 Range/Units White Blood Count 7.3 4.8-10.8 K/uL Red Blood Count 4.20 L 4.50-6.20 MIL/uL Hemoglobin 12.0 L 14.0-18.0 g/dL Hematocrit 37.1 L 42-54 % Mean Corpuscular Volume 88.3 79-99 fL Mean Corpuscular Hemoglobin 28.6 27.0-33.0 pg Mean Corpuscular Hemoglobin Concent 32.3 32.0-36.0 g/dL Red Cell Distribution Width 13.4 11.0-15.5 % Platelet Count 488 H 130-400 K/uL Mean Platelet Volume 8.2 7.5-10.5 fL Nucleated Red Blood Cells 0.0 0.0-0.19 % Chemistry Labs: Test 04/26/25 03:56 04/25/25 04:52 Range/Units Sodium Level 140 136-145 mmol/L Potassium Level 3.6 3.5-5.1 mmol/L Chloride Level 101 101-111 mmol/L Carbon Dioxide Level 29 21-32 mmol/L Blood Urea Nitrogen 8 7-18 mg/dL Creatinine 0.9 0.5-1.3 mg/dL Glomerular Filtration Rate Calc 116 >90 mL/min Random Glucose 80 70-105 mg/dL Total Calcium 8.7 8.5-10.1 mg/dL Magnesium Level 2.10 1.80-2.40 mg/dL Troponin I High Sensitivity < 4 L 4-75 ng/L DIAGNOSTICS / RADIOLOGY RESULTS: [ ] PLAN Hemodynamically stable for safe medical discharge from pulmonary standpoint Disposition: Per primary team I personally scribed for HAY HAQ MD ([email or web address]) on 04/26/25 at 23:30. Electronically submitted by Enoc Ambrocio ([email or web address]). HAY HAQ MD Apr 26, 2025 23:30
== END 2025-04-26 18:25 | disposition home or self-care (01) | DRG 871 ==
LOC: EDH 16:52 → EDHIP 16:53 → 3AH 21:42
PROVIDERS: ADMIT Internal Medicine; ATTEND Internal Medicine
DX: A41.89 Other specified sepsis (principal); J10.00 Influenza due to other identified influenza virus with unspecified type of pneumonia; I31.39 Other pericardial effusion (noninflammatory); J91.8 Pleural effusion in other conditions classified elsewhere; E87.1 Hypo-osmolality and hyponatremia; E11.9 Type 2 diabetes mellitus without complications; D64.9 Anemia, unspecified; I10 Essential (primary) hypertension; Z68.30 Body mass index [BMI] 30.0-30.9, adult; K76.0 Fatty (change of) liver, not elsewhere classified; J98.11 Atelectasis; E78.00 Pure hypercholesterolemia, unspecified; E87.6 Hypokalemia; F41.9 Anxiety disorder, unspecified; Z79.899 Other long term (current) drug therapy; G47.33 Obstructive sleep apnea (adult) (pediatric); E66.9 Obesity, unspecified
CPT/HCPCS: 36415; 71045; 71250; 76770; 80048; 80053; 81001; 82948; 83605; 83735; 84100; 84145; 84484; 85025; 85027; 86701; 87040; 87390; 87635; 87804; 93005; 93306; 94640; 94664; 94667; 94668; 99285; G0378; J0696; J1650; J1956; J2270